=== PATIENT | female | born 1955 | race Caucasian/White ===

== ENCOUNTER → 2016-06-01 | Outpatient (CLI) | payer BC ==
[2016-06-01 14:00] LABS: ABSOLUTE BASOPHILS # (AUTO) 0.1 10^3/uL (0.0-0.2); ABSOLUTE EOSINOPHILS # (AUTO) 0.4 10^3/uL (0.0-0.6); ABSOLUTE LYMPHOCYTES (AUTO) 0.8 10^3/uL (0.5-4.7); ABSOLUTE MONOCYTES (AUTO) 0.5 10^3/uL (0.1-1.4); ABSOLUTE NEUT (AUTO) 2.3 10^3/uL (1.7-8.2); BASOPHILS % (AUTO) 1.3 % (0-2); EOSINOPHILS % (AUTO) 9.1 % (0-6); HEMATOCRIT 31.3 % (36.0-47.0); HEMOGLOBIN 10.5 g/dL (12.0-15.5); HGB HCT DIFFERENCE 0.2; LYMPHOCYTES % (AUTO) 20.9 % (13-45); MEAN CORPUSCULAR HEMOGLOBIN 31.8 pg (27.0-33.4); MEAN CORPUSCULAR HGB CONC 33.5 g/dL (32.0-36.0); MEAN CORPUSCULAR VOLUME 95 fl (80-97); MONOCYTES % (AUTO) 12.1 % (3-13); SEGMENTED NEUTROPHILS % (AUTO) 56.6 % (42-78); WHITE BLOOD COUNT 4.1 10^3/uL (4.0-10.5)
[2016-06-01 14:16] LABS: ALANINE AMINOTRANSFERASE 30 U/L (9-52); ALKALINE PHOSPHATASE 144 U/L (38-126); ANION GAP 11 (5-19); ASPARTATE AMINO TRANSFERASE 35 U/L (14-36); BILIRUBIN,TOTAL 0.5 mg/dL (0.2-1.3); BLOOD UREA NITROGEN 17 mg/dL (7-20); CALCIUM 9.5 mg/dL (8.4-10.2); CARBON DIOXIDE 22 mmol/L (22-30); CHLORIDE 111 mmol/L (98-107); CREATININE RESULT 1.24 mg/dL (0.52-1.25); GLUCOSE 90 mg/dL (75-110); MAGNESIUM 2.1 mg/dL (1.6-2.3); POTASSIUM 3.8 mmol/L (3.6-5.0); SODIUM 143.6 mmol/L (137-145)
[2016-06-01 15:17] LABS: FOLATE 6.78 ng/mL (>2.76)
== END ==
LOC: OD 12:29
PROVIDERS: ATTEND Family Medicine
DX: E87.6 Hypokalemia (principal); D50-D89 Diseases of the blood and blood-forming organs and certain disorders involving the immune mechanism; D64.9 Anemia, unspecified
CPT/HCPCS: 36415; 80053; 82607; 82746; 83540; 83550; 83735; 85025

== ENCOUNTER → 2016-06-24 | Outpatient (CLI) | payer BC | LOC: RAD 15:15 | PROVIDERS: ATTEND Specialist | DX: C85.90 Non-Hodgkin lymphoma, unspecified, unspecified site (principal) | CPT/HCPCS: 78815; A9552 ==

== ENCOUNTER → 2018-02-03 | Outpatient (CLI) | payer MEDICARE ==
[2018-02-03 10:10] LABS: ABSOLUTE LYMPHOCYTES (AUTO) 0.6 10^3/uL (0.5-4.7); ABSOLUTE MONOCYTES (AUTO) 0.3 10^3/uL (0.1-1.4); ABSOLUTE NEUT (AUTO) 2.7 10^3/uL (1.7-8.2); BASOPHILS % (AUTO) 0.5 % (0-2); EOSINOPHILS % (AUTO) 0.5 % (0-6); HEMATOCRIT 31.9 % (36.0-47.0); HEMOGLOBIN 10.7 g/dL (12.0-15.5); LYMPHOCYTES % (AUTO) 16.6 % (13-45); MEAN CORPUSCULAR HEMOGLOBIN 30.1 pg (27.0-33.4); MEAN CORPUSCULAR HGB CONC 33.5 g/dL (32.0-36.0); MEAN CORPUSCULAR VOLUME 90 fl (80-97); MONOCYTES % (AUTO) 8.5 % (3-13); PLATELET COUNT 163 10^3/uL (150-450); RED BLOOD COUNT 3.55 10^6/uL (3.72-5.28); RED CELL DISTRIBUTION WIDTH 15.9 % (11.5-14.0); SEGMENTED NEUTROPHILS % (AUTO) 73.9 % (42-78); TOTAL CELLS COUNTED % (AUTO) 100 %; WHITE BLOOD COUNT 3.6 10^3/uL (4.0-10.5)
[2018-02-03 10:11] LABS: AMORPHOUS SEDIMENT,URINE TRACE /HPF; APPEARANCE,URINE SLIGHTLY-CLOUDY; BILIRUBIN,URINE NEGATIVE (NEGATIVE); CALCIUM OXALATE CRYSTALS,URINE FEW /HPF; COLOR,URINE YELLOW; GLUCOSE, URINE NEGATIVE (NEGATIVE); KETONES,URINE NEGATIVE (NEGATIVE); LEUKOCYTE ESTERASE,URINE SMALL (NEGATIVE); NITRITE,URINE POSITIVE (NEGATIVE); PROTEIN,URINE NEGATIVE (NEGATIVE); URINE SPECIFIC GRAVITY 1.011; UROBILINOGEN,URINE NEGATIVE mg/dL (<2.0)
[2018-02-03 10:19] LABS: ALANINE AMINOTRANSFERASE 22 U/L (9-52); ALBUMIN 3.7 g/dL (3.5-5.0); ALKALINE PHOSPHATASE 157 U/L (38-126); ANION GAP 13 (5-19); ASPARTATE AMINO TRANSFERASE 37 U/L (14-36); BILIRUBIN,DIRECT 0.2 mg/dL (0.0-0.4); BILIRUBIN,TOTAL 0.4 mg/dL (0.2-1.3); BLOOD UREA NITROGEN 16 mg/dL (7-20); CARBON DIOXIDE 23 mmol/L (22-30); CHLORIDE 113 mmol/L (98-107); CHOLESTEROL 186.42 mg/dL (0-200); GLUCOSE 108 mg/dL (75-110); IRON(TIBC) 76.5 ug/dL (37-170); SODIUM 148.5 mmol/L (137-145); TOTAL PROTEIN 8.4 g/dL (6.3-8.2); TRIGLYCERIDES 117 mg/dL (<150)
[2018-02-03 10:30] LABS: DIRECT LDL 122 mg/dL (<100)
[2018-02-03 10:49] LABS: POTASSIUM 2.8 mmol/L (3.6-5.0)
--- NOTE | 2018-02-03 20:38 | RADIOLOGY REPORT (SQ) ---
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 NUMBER OF VIEWS: Five views including obliques. TECHNIQUE: AP, lateral, oblique, and sacral radiographic images acquired of the lumbar spine. LIMITATIONS: None. FINDINGS: MINERALIZATION: Normal. SEGMENTATION: Normal. No transitional anatomy. ALIGNMENT: Normal. VERTEBRAE: Maintained height. No fracture or worrisome bone lesion. DISCS: Multilevel disc space narrowing with osteophytes. POSTERIOR ELEMENTS: Pedicles and facets are intact. No pars defect or posterior arch defects. Facet arthropathy is present. HARDWARE: None in the spine. PARASPINAL SOFT TISSUES: Normal. PELVIS: Intact as visualized. No fractures or worrisome bone lesions. SI joints intact. OTHER: No other significant finding. IMPRESSION: SPONDYLOSIS WITHOUT BONE LESION OR FRACTURE. TECHNICAL DOCUMENTATION: JOB ID: [id number] [address]- All Rights Reserved Reading location - IP/workstation name: [email or web address]
== END ==
LOC: OD 09:00
PROVIDERS: ATTEND Family Medicine
DX: C85.19 Unspecified B-cell lymphoma, extranodal and solid organ sites (principal); N39.498 Other specified urinary incontinence; F32.9 Major depressive disorder, single episode, unspecified; D64.9 Anemia, unspecified; M54.32 Sciatica, left side; Z13.6 Encounter for screening for cardiovascular disorders; M47.896 Other spondylosis, lumbar region
CPT/HCPCS: 36415; 72110; 80053; 80061; 81001; 83540; 83550; 84443; 85025; 87086; 87088; 87186

== ENCOUNTER → 2018-02-07 | Outpatient (CLI) | payer MEDICARE ==
--- NOTE | 2018-02-07 15:15 | RADIOLOGY REPORT (SQ) ---
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 TECHNIQUE: Sagittal and Axial imaging includes T1, T2, STIR and gradient echo sequences. Coronal T2/ HASTE imaging. LIMITATIONS: None. FINDINGS: VISUALIZED UPPER ABDOMEN: Limited evaluation. No acute or suspicious findings suggested. SEGMENTATION: No transitional anatomy. The lowest well-developed disc space is labeled L5-S1. ALIGNMENT: Anatomic. VERTEBRAE: Intact. BONE MARROW: Markedly heterogenous marrow signal throughout the bony structures. DISC SIGNAL: Decreased height and signal. POSTERIOR ELEMENTS: Generally intact. No pars defect evident. HARDWARE: None in the spine. CORD AND CONUS: Normal in size and signal intensity. Conus at the appropriate level. SOFT TISSUES: No aortic aneurysm seen. No bulky retroperitoneal adenopathy or mass. No paraspinal mas s or fluid. L1-L2: No significant spinal stenosis or exit foraminal stenosis. L2-L3: No significant disc bulge. Mild facet arthropathy. No significant spinal stenosis or exit fo raminal stenosis. L3-L4: Mild diffuse posterior disc bulge. Mild facet arthropathy. Mild spinal stenosis. No signifi cant exit foraminal stenosis. L4-L5: Mild diffuse posterior disc bulge. Mild to moderate facet arthropathy. No significant spinal stenosis. Mild lateral recess stenosis and bilateral exit foraminal stenosis, worse on the left. L5-S1: No significant disc bulge. Mild to moderate facet arthropathy. No significant spinal stenosi s. Mild exit foraminal stenosis, worse on the left. LOWER THORACIC: Incompletely imaged. No stenosis seen. SACRUM: Visualized upper sacrum intact. OTHER: No other significant findings. IMPRESSION: 1. MULTILEVEL CHRONIC DEGENERATIVE CHANGES DESCRIBED. NO ACUTE FINDINGS. 2. EXTENSIVE HETEROGENOUS MARROW SIGNAL THROUGHOUT THE BONY STRUCTURES. SIMILAR APPEARANCE ON PRIOR STUDIES IN 2013. THIS COULD BE DUE TO REPLACEMENT OF YELLOW MARROW BY RED MARROW. OTHER POSSIBILITI ES INCLUDE DIFFUSE INVOLVEMENT WITH LYMPHOMA, METASTASES, OR OTHER HEMATOLOGIC CONDITION. AGAIN, FIN DINGS SHOW NO SIGNIFICANT CHANGE COMPARED TO 2013. TECHNICAL DOCUMENTATION: JOB ID: [id number]- All Rights Reserved Reading location - IP/workstation name: [email or web address]
--- NOTE | 2018-02-07 16:04 | WOMENS IMAGING REPORT ---
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 TECHNIQUE: Standard craniocaudal and mediolateral oblique views of each breast recorded using digita l acquisition and breast tomosynthesis. LIMITATIONS: None. FINDINGS: RIGHT BREAST MASSES: No suspicious masses. CALCIFICATIONS: Calcifications in the upper-outer quadrant, located approximately 3.5 cm from the nip ple. ARCHITECTURAL DISTORTION: None. DEVELOPING DENSITY: None. ASYMMETRY: None noted. OTHER: No other significant findings. LEFT BREAST MASSES: No suspicious masses. CALCIFICATIONS: No new or suspicious calcifications. ARCHITECTURAL DISTORTION: None. DEVELOPING DENSITY: None. ASYMMETRY: None noted. OTHER: No other significant findings. Read with the assistance of CAD. .[facility] - R2 [employer] Version 1.3 .[facility] Imaging - R2 Cenova Version 1.3 .[facility] - R2 Cenova Version 2.4 .[facility] R2 Cenova Version 2.4 .[facility] AT THE [facility] - R2 [employer] Functional Testing Version 9.2 IMPRESSION: Calcifications in the upper-outer right breast. Stable mammographic appearance of the l eft breast. BREAST DENSITY: c. The breasts are heterogeneously dense, which may obscure small masses. BIRAD: 0 Incomplete: Needs Additional Imaging Evaluation and/or prior Mammograms for Comparison. RECOMMENDATION: RECOMMENDED FOLLOW-UP: Recommend additional evaluation with magnification views of t he right breast. Recommend routine screening mammography of the left breast. The patient will be contacted for additional imaging. COMMENT: The patient has been notified of the results by letter per SA requirements. Additional no tification policies are in place for contacting patient with suspicious or incomplete findings. Quality ID #225: The [employer] recommends an annual screening mammogram for women aged 40 years or over. This facility utilizes a reminder system to ensure that all patients receive reminder letters, and/or direct phone calls for appointments. This includes reminders for routine scr eening mammograms, diagnostic mammograms, or other Breast Imaging Interventions when appropriate. Th is patient will be placed in the appropriate reminder system. The [employer] (ACR) has developed recommendations for screening MRI of the breast s in certain patient populations, to be used in conjunction with mammography. Breast MRI surveillanc e may be appropriate for women with more than 20% lifetime risk of developing breast cancer as deter mined by genetic testing, significant family history of the disease, or history of mantle radiation f or Hodgkins Disease. ACR Practice Guidelines 2008. DBT Technology DBT is a type of tomographic mammography. With conventional mammography, overlapping breast tissue ma y make lesions difficult to detect, even with good compression. DBT uses an x-ray tube that rotates a round the breast, taking images at different angles. These images are then combined to create thin sl ices of the breast that the radiologist can view as a 3D reconstruction. The [employer] unit can perform full-field digital mammograms (2D imaging); or DBT (3D imaging); or both, in a combination mode that quickly performs both the mammogram and the tomosynthesis scan while the breast is still compressed. PQRS 6045F: Fluoroscopic imaging is not utilized for breast tomosynthesis. TECHNICAL DOCUMENTATION: FINDING NUMBER: (1) ASSESSMENT: (1) JOB ID: [id number] [employer]- All Rights Reserved Reading location - IP/workstation name: [email or web address] BEDS AT THE [facility]
== END ==
LOC: WI 13:45
PROVIDERS: ATTEND Family Medicine
DX: Z12.31 Encounter for screening mammogram for malignant neoplasm of breast (principal); R92.0 Mammographic microcalcification found on diagnostic imaging of breast; M54.32 Sciatica, left side; M47.896 Other spondylosis, lumbar region
CPT/HCPCS: 72148; 77063; 77067

== ENCOUNTER → 2018-02-13 | Outpatient (CLI) | payer MEDICARE ==
--- NOTE | 2018-02-13 14:28 | WOMENS IMAGING REPORT ---
EXAM DESCRIPTION: RIGHT DIAGNOSTIC MAMMO W/CAD COMPLETED DATE/TIME: 02/13/2018 12:58 pm REASON FOR STUDY: MICROCALCIFICATIONS R92.0 MAMMOGRAPHIC MICROCALCIFICATION FOUND ON DX IMAGING OF COMPARISON: 2008, 02/07/2018. TECHNIQUE: True lateral and magnification views. LIMITATIONS: None. FINDINGS: BREAST: right MASSES: No suspicious masses. CALCIFICATIONS: Scattered calcifications which are either stable or are not suspicious. ARCHITECTURAL DISTORTION: None. DEVELOPING DENSITY: None. ASYMMETRY: None noted. OTHER: No other significant findings. IMPRESSION: Benign findings. BREAST DENSITY: c. The breasts are heterogeneously dense, which may obscure small masses. BIRAD: 2 Benign findings. RECOMMENDATION: RECOMMENDED FOLLOW UP: Birads 1 or 2: The patient should resume routine screening . SPECIFIC INTERVENTION/IMAGING/CONSULTATION RECOMMENDED:No additional intervention/ imaging/consultati on needed at this time. COMMUNICATION:The imaging findings were not discussed with the patient. Her referring provider has be en notified of the findings. COMMENT: The patient has been notified of the results by letter per SA requirements. Additional no tification policies are in place for contacting patient with suspicious or incomplete findings. Quality ID #225: The [employer] recommends an annual screening mammogram for women aged 40 years or over. This facility utilizes a reminder system to ensure that all patients receive reminder letters, and/or direct phone calls for appointments. This includes reminders for routine scr eening mammograms, diagnostic mammograms, or other Breast Imaging Interventions when appropriate. Th is patient will be placed in the appropriate reminder system. The [employer] (ACR) has developed recommendations for screening MRI of the breast s in certain patient populations, to be used in conjunction with mammography. Breast MRI surveillanc e may be appropriate for women with more than 20% lifetime risk of developing breast cancer as deter mined by genetic testing, significant family history of the disease, or history of mantle radiation f or Hodgkins Disease. ACR Practice Guidelines 2008. TECHNICAL DOCUMENTATION: FINDING NUMBER: (1) ASSESSMENT: (1) JOB ID: [id number] [employer]- All Rights Reserved Reading location - IP/workstation name: [email or web address] BY [facility]
== END ==
LOC: WI 12:35
PROVIDERS: ATTEND Family Medicine
DX: R92.0 Mammographic microcalcification found on diagnostic imaging of breast (principal)

== ENCOUNTER 2018-05-02 16:18 | Emergency (ER) | payer MEDICARE ==
--- NOTE | 2018-05-02 18:00 | ER Document Report ---
ED Medical Screen (RME) - General Chief Complaint: Leg Pain Stated Complaint: ANKLE PAIN/SWELLING Time Seen by Provider: 05/02/18 17:55 Primary Care Provider: SRAVAN MCCABE MD [Primary Care Provider] - Follow up as needed Notes: 62-year-old female patient with a nonhealing ulceration to the left anterior leg for over a month which was nontraumatic by history. Painful swelling to the left lower extremity. Sent here by her doctor for venous Doppler. Past history of osteomyelitis to the left tib-fib region, and distant past history of left leg DVT. No antiplatelet therapy and no anticoagulation at this time. I have greeted and performed a rapid initial assessment of this patient. A comprehensive ED assessment and evaluation of the patient, analysis of test results and completion of the medical decision making process will be conducted by additional ED providers. TRAVEL OUTSIDE OF THE [place] IN LAST 30 DAYS: No - Related Data Allergies/Adverse Reactions: cephalexin monohydrate [From Keflex] Allergy (Mild, Verified 05/02/18 16:21) ciprofloxacin HCl [From Cipro] Allergy (Mild, Verified 05/02/18 16:21) hydrocodone bitartrate [From Vicodin] Allergy (Mild, Verified 05/02/18 16:21) Past Medical History - Past Medical History Cardiac Medical History: Reports: Hx DVT, Hx Pulmonary Embolism Pulmonary Medical History: Reports: Hx Pneumonia Denies: Hx Tuberculosis Renal/ Medical History: Reports: Hx Renal Insufficiency Psychiatric Medical History: Reports: Hx Depression Past Surgical History: Reports: Hx Section, Hx Cholecystectomy, Hx Herniorrhaphy, Hx Hysterectomy, Hx Whipple. Denies: Hx Pacemaker - Immunizations Hx Diphtheria, Pertussis, Tetanus Vaccination: Yes Physical Exam - Vital signs Vitals: Temp Pulse Resp BP Pulse Ox 98.1 F 65 18 126/72 H 100 05/02/18 16:30 05/02/18 16:30 05/02/18 16:30 05/02/18 16:30 05/02/18 16:30 Course - Vital Signs Vital signs: Temp Pulse Resp BP Pulse Ox 98.1 F 65 18 126/72 H 100 05/02/18 16:30 05/02/18 16:30 05/02/18 16:30 05/02/18 16:30 05/02/18 16:30 Doctor's Discharge - Discharge Referrals: SRAVAN MCCABE MD [Primary Care Provider] - Follow up as needed
[2018-05-02 18:42] LABS: ABSOLUTE EOSINOPHILS # (AUTO) 0.2 10^3/uL (0.0-0.6); ABSOLUTE LYMPHOCYTES (AUTO) 0.8 10^3/uL (0.5-4.7); ABSOLUTE MONOCYTES (AUTO) 0.5 10^3/uL (0.1-1.4); EOSINOPHILS % (AUTO) 6.7 % (0-6); HEMOGLOBIN 10.7 g/dL (12.0-15.5); LYMPHOCYTES % (AUTO) 21.5 % (13-45); MEAN CORPUSCULAR HEMOGLOBIN 30.3 pg (27.0-33.4); MEAN CORPUSCULAR HGB CONC 33.3 g/dL (32.0-36.0); MEAN CORPUSCULAR VOLUME 91 fl (80-97); MONOCYTES % (AUTO) 13.2 % (3-13); PLATELET COUNT 198 10^3/uL (150-450); RED BLOOD COUNT 3.52 10^6/uL (3.72-5.28); RED CELL DISTRIBUTION WIDTH 15.1 % (11.5-14.0); SEGMENTED NEUTROPHILS % (AUTO) 57.6 % (42-78); TOTAL CELLS COUNTED % (AUTO) 100 %; WHITE BLOOD COUNT 3.5 10^3/uL (4.0-10.5)
[2018-05-02 18:51] LABS: INTERNATIONAL RATION (INR) 0.89; PROTHROMBIN TIME 12.5 SEC (11.4-15.4)
[2018-05-02 18:52] LABS: ALANINE AMINOTRANSFERASE 10 U/L (9-52); ALBUMIN 4.4 g/dL (3.5-5.0); ALKALINE PHOSPHATASE 243 U/L (38-126); ANION GAP 9 (5-19); ASPARTATE AMINO TRANSFERASE 20 U/L (14-36); BILIRUBIN,DIRECT 0.3 mg/dL (0.0-0.4); BILIRUBIN,TOTAL 0.4 mg/dL (0.2-1.3); BLOOD UREA NITROGEN 24 mg/dL (7-20); CALCIUM 9.6 mg/dL (8.4-10.2); CARBON DIOXIDE 25 mmol/L (22-30); CHLORIDE 107 mmol/L (98-107); GLUCOSE 98 mg/dL (75-110); POTASSIUM 4.5 mmol/L (3.6-5.0); SODIUM 141.3 mmol/L (137-145); TOTAL PROTEIN 9.1 g/dL (6.3-8.2)
--- NOTE | 2018-05-02 19:20 | ER Document Report ---
ED Extremity Problem, Lower - General Chief Complaint: Leg Pain Stated Complaint: ANKLE PAIN/SWELLING Time Seen by Provider: 05/02/18 17:55 Primary Care Provider: SRAVAN MCCABE MD [Primary Care Provider] - Follow up as needed Notes: Patient is a 62 year old female that comes to the Emergency Department for chief complaint of a non-healing ulceration to the left anterior lower leg. Location has been present for 1 month. Patient has a history of osteomyelitis in the same side, remote history of DVT, not on any blood thinners. Denies trauma. Denies fever or pain to the area. She does report some mild swelling to the ankle area. She states she was referred here by a primary care physician for a venous Doppler ultrasound to rule out DVT. She states she does get intermittent swelling in the same leg and does not in the other leg. TRAVEL OUTSIDE OF THE [place] IN LAST 30 DAYS: No - Related Data Allergies/Adverse Reactions: cephalexin monohydrate [From Keflex] Allergy (Mild, Verified 05/02/18 16:21) ciprofloxacin HCl [From Cipro] Allergy (Mild, Verified 05/02/18 16:21) hydrocodone bitartrate [From Vicodin] Allergy (Mild, Verified 05/02/18 16:21) Past Medical History - General Information source: Patient - Social History Smoking Status: Former Smoker Chew tobacco use (# tins/day): No Frequency of alcohol use: None Drug Abuse: None Lives with: Alone Family History: Reviewed & Not Pertinent Patient has suicidal ideation: No Patient has homicidal ideation: No - Past Medical History Cardiac Medical History: Reports: Hx DVT, Hx Pulmonary Embolism Pulmonary Medical History: Reports: Hx Pneumonia Denies: Hx Tuberculosis Renal/ Medical History: Reports: Hx Renal Insufficiency. Denies: Hx Peritoneal Dialysis Psychiatric Medical History: Reports: Hx Depression Past Surgical History: Reports: Hx Abdominal Surgery - hernia repair, Hx Section, Hx Cholecystectomy, Hx Herniorrhaphy, Hx Hysterectomy, Hx Orthopedic Surgery - left ankle, Hx Pancreatic Surgery - whipple, Hx Whipple. Denies: Hx Pacemaker - Immunizations Hx Diphtheria, Pertussis, Tetanus Vaccination: Yes Hx Pneumococcal Vaccination: 02/04/12 Review of Systems - Review of Systems Constitutional: No symptoms reported EENT: No symptoms reported Cardiovascular: No symptoms reported Respiratory: No symptoms reported Gastrointestinal: No symptoms reported Genitourinary: No symptoms reported Female Genitourinary: No symptoms reported Musculoskeletal: See HPI Skin: See HPI Hematologic/Lymphatic: See HPI Neurological/Psychological: No symptoms reported Physical Exam - Vital signs Vitals: Temp Pulse Resp BP Pulse Ox 98.1 F 65 18 126/72 H 100 05/02/18 16:30 05/02/18 16:30 05/02/18 16:30 05/02/18 16:30 05/02/18 16:30 - Notes Notes: GENERAL: Alert, interacts well. No acute distress. HEAD: Normocephalic, atraumatic. EYES: Pupils equal, round, and reactive to light. Extraocular movements intact. ENT: Oral mucosa moist, tongue midline. Oropharynx unremarkable. Airway patent. Nares patent, no nasal septal hematoma, TM's intact. NECK: Full range of motion. Supple. Trachea midline. LUNGS: Clear to auscultation bilaterally, no wheezes, rales, or rhonchi. No respiratory distress. HEART: Regular rate and rhythm. No murmur ABDOMEN: Soft, non-tender. Non-distended. Bowel sounds present in all 4 quadrants. GENITOURINARY: Deferred EXTREMITIES: Distal anterior medial tibia with a small area of skin breakdown, some darkness/scabbing to the skin, no noted erythema, tenderness, purulence, or spreading erythema. Small amount of soft tissue swelling to the distal leg and over the ankle. Normal distal pulse and sensation. Normal temperature of the foot. Normal lower extremity exam otherwise. BACK: no cervical, thoracic, lumbar midline tenderness. No saddle anesthesia, normal distal neurovascular exam. NEUROLOGICAL: Alert and oriented x3. Normal speech. [cranial nerves II through XII grossly intact]. PSYCH: Normal affect, normal mood. SKIN: Warm, dry, normal turgor. No rashes or lesions noted. Course - Re-evaluation Re-evalutation: Initial report of venous Doppler ultrasound showing no DVT. There is scarring of the veins from previous clots. I suspect this is why patient has poor return, intermittent swelling, and the appearance of her skin shows that she has some rubbing of the skin, breakdown, and mild ulceration as a result. There is no evidence of secondary infection, there is no tenderness to the area. There is no significant swelling. Laboratory workup performed in triage nonspecific. Vital signs unremarkable. Patient very well-appearing with no current symptoms. Because she does have some skin ulceration and this has been nonhealing for 1 month, patient will be referred to the wound clinic, she states she will follow- up with them. Discussed primary care follow-up and return precautions as well. Patient states understanding and agreement. Stable at time of discharge. - Vital Signs Vital signs: Temp Pulse Resp BP Pulse Ox 98.2 F 67 18 131/67 H 100 05/02/18 20:43 05/02/18 20:43 05/02/18 20:43 05/02/18 20:43 05/02/18 20:43 - Laboratory Result Diagrams: 05/02/18 18:04 05/02/18 18:04 Laboratory results interpreted by me: 05/02/18 05/02/18 18:04 18:04 WBC 3.5 L RBC 3.52 L Hgb 10.7 L Hct 32.0 L RDW 15.1 H Monocytes % 13.2 H Eosinophils % 6.7 H BUN 24 H Est GFR (Non-Af Amer) 54 L Alkaline Phosphatase 243 H Total Protein 9.1 H Discharge - Discharge Clinical Impression: Non-healing skin lesion, Swelling of left lower extremity Condition: Stable Disposition: HOME, SELF-CARE Additional Instructions: Your Doppler ultrasound does not show a blood clot seen on initial results. You do have scarring in the veins from previous clots, this is probably the reason that you get lower extremity swelling on the left side from poor venous blood flow return. Recommend elevation, dressing over the slowly healing with skin lesion, compression stockings. Follow-up with the wound care clinic for additional management because the wound has not healed for 1 month. Call the listed referral. Return if you develop any concerning worsening symptoms including severe swelling, developing or spreading redness at the site, fever, pain, or any other concerning or worsening symptoms. Referrals: SRAVAN MCCABE MD [Primary Care Provider] - Follow up as needed
[2018-05-02 20:44] VITALS: BP 131/67
--- NOTE | 2018-05-03 08:31 | RADIOLOGY REPORT (SQ) ---
EXAM DESCRIPTION: VENOUS UNILATERAL LOWER COMPLETED DATE/TIME: 05/02/2018 8:27 pm REASON FOR STUDY: Left leg pain and swelling, previous DVT COMPARISON: 10/29/2014 TECHNIQUE: Dynamic and static miller scale and color images acquired of the left leg venous system. Se lected spectral images acquired with additional compression and augmentation maneuvers. The contralat eral common femoral vein and saphenofemoral junction were also imaged. Images stored on PACS. LIMITATIONS: None. FINDINGS: LEFT COMMON FEMORAL: Normal phasicity, compression and augmentation. No visualized echogenic material on g ray scale. No defects on color images. FEMORAL: Normal compression and augmentation. No visualized echogenic material on miller scale. No defe cts on color images. POPLITEAL: Normal compression, augmentation. No visualized echogenic material on miller scale. No defec ts on color images. POSTERIOR TIBIAL AND PERONEAL VEINS: Normal compression, augmentation. No visualized echogenic materi al on miller scale. No defects on color images. GSV and SSV: Normal compression, augmentation. No visualized echogenic material on imller scale. No def ects on color images. ANY DEEP VENOUS INSUFFICIENCY: There is reflux in the distal superficial femoral vein during Valsalva . ANY EVIDENCE OF POPLITEAL CYST: No. OTHER: No other significant finding. RIGHT COMMON FEMORAL VEIN AND SAPHENOFEMORAL JUNCTION: Normal phasicity, compression and augmentation. No visualized echogenic material on miller scale. No de fects on color images. IMPRESSION: NO EVIDENCE OF DVT OR SVT IN THE LEFT LEG. TECHNICAL DOCUMENTATION: JOB ID: [id number] [employer]- All Rights Reserved Reading location - IP/workstation name: [email or web address]
== END 2018-05-02 20:31 | disposition home or self-care (01) ==
LOC: ER 16:18
DX: L97.829 Non-pressure chronic ulcer of other part of left lower leg with unspecified severity (principal); M79.89 Other specified soft tissue disorders; Z86.718 Personal history of other venous thrombosis and embolism; Z88.3 Allergy status to other anti-infective agents; Z88.6 Allergy status to analgesic agent; Z87.891 Personal history of nicotine dependence; Z90.49 Acquired absence of other specified parts of digestive tract; Z90.710 Acquired absence of both cervix and uterus
CPT/HCPCS: 36415; 80053; 85025; 85610; 85730; 93971; 99284

== ENCOUNTER → 2018-05-08 | Outpatient (CLI) | payer MEDICARE ==
--- NOTE | 2018-05-08 16:26 | RADIOLOGY REPORT (SQ) ---
EXAM DESCRIPTION: FOOT LEFT COMPLETE COMPLETED DATE/TIME: 05/08/2018 4:03 pm REASON FOR STUDY: NON PRESSURE ULCER OF LEFT ANKLE AND LEFT CALF, FAT LAYER EXPOSED L97.222 NON-PRE SSURE CHRONIC ULCER OF LEFT CALF W FAT LAYER L97.322 NON-PRESSURE CHRONIC ULCER OF LEFT ANKLE W FAT LAYER COMPARISON: 12/03/2014. NUMBER OF VIEWS: Three views. TECHNIQUE: AP, lateral and oblique radiographic images acquired of the left foot. LIMITATIONS: None. FINDINGS: MINERALIZATION: Normal. BONES: No acute fracture or dislocation. No suspicious osseous lesions. Mild degenerative changes w ith osteophytosis at the mid foot superiorly. Sclerosis with the posterosuperior calcaneus, increase d from prior. No evidence of osseous erosion. JOINTS: No visualized effusion. SOFT TISSUES: Soft tissue swelling about the foot. No radiopaque foreign body. OTHER: No other significant finding. IMPRESSION: No evidence of fracture or dislocation. Sclerosis within the calcaneus, increased in conspicuity compared to prior. Findings may be related to bony infarct although osteomyelitis is another consideration. MRI would be more sensitive for leif luation of osteomyelitis. No radiopaque foreign body. TECHNICAL DOCUMENTATION: JOB ID: [id number] [employer]- All Rights Reserved Reading location - IP/workstation name: [email or web address]
--- NOTE | 2018-05-08 16:34 | RADIOLOGY REPORT (SQ) ---
EXAM DESCRIPTION: TIBIA FIBULA LEFT COMPLETED DATE/TIME: 05/08/2018 4:03 pm REASON FOR STUDY: NON-PRESSURE CHRONIC ULCER OF LEFT ANKLE W FAT LAYER EXPOSED L97.222 NON-PRESSURE CHRONIC ULCER OF LEFT CALF W FAT LAYER L97.322 NON-PRESSURE CHRONIC ULCER OF LEFT ANKLE W FAT LAYE R COMPARISON: 06/08/2012 NUMBER OF VIEWS: Two views. TECHNIQUE: Two radiographic images acquired of the left tibia and fibula to include the knee and ank le in at least one projection. LIMITATIONS: None. FINDINGS: MINERALIZATION: Normal. BONES: No acute fracture or dislocation. Sclerosis within the left calcaneus, increased in conspicui ty compared to prior exam. No leak discrete lytic lesions. Unchanged possible periosteal reaction a bout the distal fibula. SOFT TISSUES: Small amount of subcutaneous gas along the anterior distal left lower extremity. No ra diopaque foreign body. OTHER: No other significant finding. IMPRESSION: Subcutaneous gas along the anterior distal left lower extremity. No radiopaque foreign body. Sclerosis within the left calcaneus possibly secondary to osseous infarct. Osteomyelitis is another consideration. MRI would be more sensitive. TECHNICAL DOCUMENTATION: JOB ID: [id number] [employer]- All Rights Reserved Reading location - IP/workstation name: [email or web address]
== END ==
LOC: OD 15:17
PROVIDERS: ATTEND Nurse Practitioner
DX: L97.222 Non-pressure chronic ulcer of left calf with fat layer exposed (principal); L97.322 Non-pressure chronic ulcer of left ankle with fat layer exposed
CPT/HCPCS: 36415; 85652; 86140

== ENCOUNTER → 2018-05-13 | Outpatient (CLI) | payer MEDICARE ==
--- NOTE | 2018-05-13 13:56 | RADIOLOGY REPORT (SQ) ---
EXAM DESCRIPTION: MRI LT LOWER EXTREMITY COMBO COMPLETED DATE/TIME: 05/13/2018 1:31 pm REASON FOR STUDY: NON-PRESSURE CHRONIC ULCER OF LEFT CALF L97.222 L97.222 NON-PRESSURE CHRONIC ULCE R OF LEFT CALF W FAT LAYER COMPARISON: Plain radiographs. Prior study 2014 TECHNIQUE: Multiplanar imaging of the left tib fib to include T1-weighted, postcontrast T1-weighted, and T2-weighted images. CONTRAST TYPE AND DOSE: 10 mL Dotarem. RENAL FUNCTION: GFR 54 LIMITATIONS: None. FINDINGS: BONE MARROW: There are no findings to suggest osteomyelitis. There is however a transvers e stress fracture of the distal tibia proximal to the tibiotalar joint. Adjacent marrow edema. Stephon tional possible stress fractures in the calcaneus. incompletely imaged. SOFT TISSUES: No soft tissue mass or enhancement in the area of clinical concern. No abscess. OTHER: No other significant finding. IMPRESSION: Transverse stress fracture of the distal tibia proximal to the tibiotalar joint. Adjace nt marrow edema. No osteomyelitis. Additional possible stress fractures in the calcaneus. No soft tissue mass or abscess. TECHNICAL DOCUMENTATION: JOB ID: [id number] [employer]- All Rights Reserved Reading location - IP/workstation name: [email or web address]
== END ==
LOC: RAD 12:25
PROVIDERS: ATTEND Nurse Practitioner
DX: L97.222 Non-pressure chronic ulcer of left calf with fat layer exposed (principal)
CPT/HCPCS: 73720; A9576

== ENCOUNTER → 2018-05-14 | Outpatient (CLI) | payer MEDICARE ==
--- NOTE | 2018-05-15 09:48 | XCELERA REPORT ---
[address] [address] Lower Extremity Venous Evaluation Procedure: A bilateral duplex scan of the lower extremity veins was performed. The evaluation included responses to compression and other maneuvers with patient in the supine and standing positions to assess venous insufficiency. Right Sided Venous Evaluation Deep venous system evaluation shows partial obstruction, echogenic content in the Popliteal vein. also in the Greater Saphenous vein, near the ankle. No significant reflux identified. Saphena Femoral junction: no reflux. Femoral vein reflux: no reflux. Popliteal vein reflux: no reflux. Echogenic content. Greater Saphenous vein, Proximal thigh: reflux: no reflux. Greater Saphenous vein, Distal thigh: reflux: no reflux. Greater Saphenous vein, Distal below knee: reflux: no reflux. Echogenic content in the vein. No significant Fine Arts Model reflux identified. Left Sided Venous Evaluation Deep venous system evaluation shows mostly patent veins with echogenic intra luminal thrombus, no significant reflux identified. In CFV,FV,DFV,POP. Also in Greater Saphenous. Saphena Femoral junction: no reflux. Femoral vein reflux: no reflux. Echogenic content with color flow around. Likewise in deep veins as noted above. Greater Saphenous vein, Proximal thigh: reflux: no reflux. Greater Saphenous vein, Distal thigh: reflux: no reflux. Greater Saphenous vein, Proximal below knee: reflux: no reflux. No significant Perforators identified. Critical Findings Discussed with JORDAN Chandler. Interpretation Summary Positive for Chronic DVT, extensive on left, in Popliteal on the right. Also old, chronic superficial phlebitis bilaterally. Name: CORA KWON Age: 62 yrs Gender: Female : 1955 Patient Status: Outpatient Patient Location: Study Date: 05/14/2018 02:40 PM Reason For Study: ULCER Ordering Physician: ANN CHANDLER Performed By: Vitaly Gama : ANN CHANDLER > Nehemias Vazquez
--- NOTE | 2018-05-15 09:50 | XCELERA REPORT ---
[address] [address] Lower Extremity Arterial Evaluation Name: CORA KWON Age: 62 yrs Gender: Female : 1955 Patient Status: Outpatient Patient Location: Study Date: 05/14/2018 02:20 PM Procedure: A color flow and duplex scan of the lower extremity arteries was performed bilaterally with velocity and waveform anaylsis. Ankle brachial indicies performed. Reason For Study: ULCER Ordering Physician: ANN CHANDLER Performed By: Vitaly Gama Measurements and Calculations Right Left WARM IN WORKER PSV 114.5 165.0 cm/sec Prox PFA PSV -79.1 -118.0cm/sec Prox SFA PSV 104.3 114.5 cm/sec Mid SFA PSV -98.2 -117.3cm/sec Dist SFA PSV -83.8 -77.1 cm/sec Prox Pop A PSV 96.5 140.6 cm/sec Dist JASMIN PSV 78.6 126.3 cm/sec Dist TOBACCO BALER PSV 137.6 97.6 cm/sec Jerson Pedis PSV 46.9 -91.7 cm/sec Right Side Arterial Evaluation Normal velocity and triphasic waveforms noted from the Common Femoral artery to the infrageniculate vessels . Ankle Brachial index 1.11. Left Side Arterial Evaluation Normal velocity and triphasic waveforms noted from the Common Femoral artery to the infrageniculate vessels . Ankle Brachial index 1.20. Interpretation Summary No hemodynamically significant lesions in the bilateral lower extremities, on duplex imaging, at rest. : ANN CHANDLER > Nehemias Vazquez
== END ==
LOC: SP 13:58
PROVIDERS: ATTEND Nurse Practitioner
DX: L97.322 Non-pressure chronic ulcer of left ankle with fat layer exposed (principal); L97.222 Non-pressure chronic ulcer of left calf with fat layer exposed
CPT/HCPCS: 93922; 93925; 93970

== ENCOUNTER → 2018-06-26 | Outpatient (CLI) | payer MEDICARE ==
[2018-06-26 14:48] LABS: ABSOLUTE EOSINOPHILS # (AUTO) 0.2 10^3/uL (0.0-0.6); ABSOLUTE LYMPHOCYTES (AUTO) 0.6 10^3/uL (0.5-4.7); ABSOLUTE MONOCYTES (AUTO) 0.4 10^3/uL (0.1-1.4); ABSOLUTE NEUT (AUTO) 1.8 10^3/uL (1.7-8.2); BASOPHILS % (AUTO) 0.6 % (0-2); HEMATOCRIT 28.8 % (36.0-47.0); HEMOGLOBIN 9.8 g/dL (12.0-15.5); LYMPHOCYTES % (AUTO) 20.3 % (13-45); MEAN CORPUSCULAR HEMOGLOBIN 30.3 pg (27.0-33.4); MEAN CORPUSCULAR VOLUME 89 fl (80-97); MONOCYTES % (AUTO) 14.2 % (3-13); PLATELET COUNT 163 10^3/uL (150-450); RED BLOOD COUNT 3.23 10^6/uL (3.72-5.28); RED CELL DISTRIBUTION WIDTH 14.9 % (11.5-14.0); SEGMENTED NEUTROPHILS % (AUTO) 58.9 % (42-78); TOTAL CELLS COUNTED % (AUTO) 100 %
[2018-06-26 15:03] LABS: APPEARANCE,URINE SLIGHTLY-CLOUDY; BILIRUBIN,URINE NEGATIVE (NEGATIVE); CALCIUM OXALATE CRYSTALS,URINE MANY /HPF; COLOR,URINE YELLOW; GLUCOSE, URINE NEGATIVE (NEGATIVE); KETONES,URINE TRACE mg/dL (NEGATIVE); LEUKOCYTE ESTERASE,URINE MODERATE (NEGATIVE); NITRITE,URINE NEGATIVE (NEGATIVE); PROTEIN,URINE 30 mg/dL (NEGATIVE); URINE SPECIFIC GRAVITY 1.021
[2018-06-26 15:08] LABS: ANION GAP 7 (5-19); BLOOD UREA NITROGEN 26 mg/dL (7-20); CALCIUM 9.2 mg/dL (8.4-10.2); CARBON DIOXIDE 25 mmol/L (22-30); CHLORIDE 111 mmol/L (98-107); GLUCOSE 79 mg/dL (75-110); IRON(TIBC) 62.7 ug/dL (37-170); PHOSPHORUS 4.2 mg/dL (2.5-4.5); POTASSIUM 4.2 mmol/L (3.6-5.0); SODIUM 143.1 mmol/L (137-145)
[2018-06-26 16:15] LABS: FOLATE 4.31 ng/mL (>2.76)
== END ==
LOC: OD 14:01
PROVIDERS: ATTEND Family Medicine
DX: N18.9 Chronic kidney disease, unspecified (principal); D64.9 Anemia, unspecified
CPT/HCPCS: 36415; 80048; 81001; 82607; 82728; 82746; 83540; 83550; 84100; 85025

== ENCOUNTER → 2018-07-25 | Outpatient (CLI) | payer MEDICARE ==
--- NOTE | 2018-07-25 12:58 | RADIOLOGY REPORT (SQ) ---
EXAM DESCRIPTION: CHEST PA/LATERAL COMPLETED DATE/TIME: 07/25/2018 12:00 pm REASON FOR STUDY: OTHER NONSPECIFIC ABNORMAL FINDING OF LUNG FIELD COMPARISON: 03/05/2016 EXAM PARAMETERS: NUMBER OF VIEWS: two views TECHNIQUE: Digital Frontal and Lateral radiographic views of the chest acquired. RADIATION DOSE: NA LIMITATIONS: none FINDINGS: LUNGS AND PLEURA: No opacities, masses or pneumothorax. No pleural effusion. Stable chron ic interstitial changes. MEDIASTINUM AND HILAR STRUCTURES: No masses or contour abnormalities. HEART AND VASCULAR STRUCTURES: Normal heart size. Aortic atherosclerosis. BONES: No acute findings. HARDWARE: None in the chest. OTHER: No other significant finding. IMPRESSION: No evidence of acute cardiopulmonary process. TECHNICAL DOCUMENTATION: JOB ID: [id number] [employer]- All Rights Reserved Reading location - IP/workstation name: [email or web address]
== END ==
LOC: OD 11:47
PROVIDERS: ATTEND Family Medicine
DX: R91.8 Other nonspecific abnormal finding of lung field (principal)
CPT/HCPCS: 71046

== ENCOUNTER → 2018-12-21 | Outpatient (CLI) | payer MEDICARE ==
--- NOTE | 2018-12-21 12:32 | RADIOLOGY REPORT (SQ) ---
EXAM DESCRIPTION: BARIUM SWALLOW ESOPHAGUS COMPLETED DATE/TIME: 12/21/2018 9:12 am REASON FOR STUDY: R13.12 DYSPHAGIA, OROPHARYNGEAL PHASE R13.12 DYSPHAGIA, OROPHARYNGEAL PHASE COMPARISON: None. TECHNIQUE: Under fluoroscopic guidance, patient ingested effervescent granules followed by thick and thin barium. Fluoroscopic spot images and routine radiographic images acquired and stored on PACS. 12 MM BARIUM TABLET GIVEN: Yes. No significant delay in passage. LIMITATIONS: None. FLUOROSCOPY TIME: FLUORO TIME: 2.2 minutes of fluoroscopy was used. 11 images saved to PACS. FINDINGS: NEUROMUSCULAR COORDINATION OF SWALLOW: Normal. No aspiration. Mild cricopharyngeal hypert rophy. ESOPHAGEAL MOTILITY: Mild esophageal dysmotility. It is No esophageal spasm. ESOPHAGEAL MUCOSA: Normal mucosa without masses or ulceration. GASTRO-ESOPHAGEAL JUNCTION: No hiatal hernia or significant reflux. 12 mm barium tablet passed throu gh the esophagus and into the stomach without delay. NON-GI TRACT STRUCTURES: No significant finding. OTHER: Postsurgical changes seen of the stomach from previous Whipple procedure. Contrast is seen em ptying into the duodenum. IMPRESSION: MILD ESOPHAGEAL DYSMOTILITY OTHERWISE UNREMARKABLE BARIUM SWALLOW. COMMENT: Quality ID [id number]: Final reports for procedures using fluoroscopy that document radiation exp osure indices, or exposure time and number of fluorographic images (if radiation exposure indices are not available) TECHNICAL DOCUMENTATION: JOB ID: [id number] [employer]- All Rights Reserved Reading location - IP/workstation name: [email or web address]
== END ==
LOC: RAD 08:08
PROVIDERS: ATTEND Internal Medicine Gastroenterology
DX: K22.4 Dyskinesia of esophagus (principal); R13.12 Dysphagia, oropharyngeal phase
CPT/HCPCS: 74220

== ENCOUNTER → 2019-02-14 | Outpatient (CLI) | payer MEDICARE ==
[2019-02-14 10:30] LABS: ABSOLUTE EOSINOPHILS # (AUTO) 0.3 10^3/uL (0.0-0.6); ABSOLUTE LYMPHOCYTES (AUTO) 0.5 10^3/uL (0.5-4.7); ABSOLUTE MONOCYTES (AUTO) 0.5 10^3/uL (0.1-1.4); ABSOLUTE NEUT (AUTO) 2.3 10^3/uL (1.7-8.2); BASOPHILS % (AUTO) 0.9 % (0-2); EOSINOPHILS % (AUTO) 7.3 % (0-6); HEMATOCRIT 31.2 % (36.0-47.0); HEMOGLOBIN 10.5 g/dL (12.0-15.5); MEAN CORPUSCULAR HGB CONC 33.7 g/dL (32.0-36.0); MEAN CORPUSCULAR VOLUME 89 fl (80-97); MONOCYTES % (AUTO) 12.7 % (3-13); PLATELET COUNT 184 10^3/uL (150-450); SEGMENTED NEUTROPHILS % (AUTO) 64.1 % (42-78); TOTAL CELLS COUNTED % (AUTO) 100 %; WHITE BLOOD COUNT 3.7 10^3/uL (4.0-10.5)
[2019-02-14 10:44] LABS: ALBUMIN 4.1 g/dL (3.5-5.0); ALKALINE PHOSPHATASE 124 U/L (38-126); ANION GAP 10 (5-19); ASPARTATE AMINO TRANSFERASE 22 U/L (14-36); BILIRUBIN,DIRECT 0.2 mg/dL (0.0-0.4); BILIRUBIN,TOTAL 0.4 mg/dL (0.2-1.3); BLOOD UREA NITROGEN 25 mg/dL (7-20); CALCIUM 9.9 mg/dL (8.4-10.2); CARBON DIOXIDE 25 mmol/L (22-30); CHLORIDE 110 mmol/L (98-107); GLUCOSE 101 mg/dL (75-110); POTASSIUM 4.9 mmol/L (3.6-5.0); TOTAL PROTEIN 9.3 g/dL (6.3-8.2); TRIGLYCERIDES 290 mg/dL (<150)
[2019-02-14 10:54] LABS: DIRECT LDL 132 mg/dL (<100)
== END ==
LOC: OD 09:37
PROVIDERS: ATTEND Family Medicine
DX: E87.6 Hypokalemia (principal); C85.19 Unspecified B-cell lymphoma, extranodal and solid organ sites; D51.9 Vitamin B12 deficiency anemia, unspecified; Z13.1 Encounter for screening for diabetes mellitus; Z13.6 Encounter for screening for cardiovascular disorders; Z13.0 Encounter for screening for diseases of the blood and blood-forming organs and certain disorders involving the immune mechanism
CPT/HCPCS: 36415; 80053; 80061; 82607; 83615; 83735; 85025

== ENCOUNTER → 2019-04-23 | Outpatient (CLI) | payer MEDICARE ==
[2019-04-23 15:32] LABS: ABSOLUTE EOSINOPHILS # (AUTO) 0.3 10^3/uL (0.0-0.6); ABSOLUTE LYMPHOCYTES (AUTO) 0.7 10^3/uL (0.5-4.7); ABSOLUTE MONOCYTES (AUTO) 0.6 10^3/uL (0.1-1.4); ABSOLUTE NEUT (AUTO) 2.1 10^3/uL (1.7-8.2); HEMATOCRIT 30.2 % (36.0-47.0); HEMOGLOBIN 10.2 g/dL (12.0-15.5); LYMPHOCYTES % (AUTO) 19.2 % (13-45); MEAN CORPUSCULAR HEMOGLOBIN 30.1 pg (27.0-33.4); MEAN CORPUSCULAR HGB CONC 33.9 g/dL (32.0-36.0); MEAN CORPUSCULAR VOLUME 89 fl (80-97); MONOCYTES % (AUTO) 15.8 % (3-13); PLATELET COUNT 176 10^3/uL (150-450); RED CELL DISTRIBUTION WIDTH 15.7 % (11.5-14.0); TOTAL CELLS COUNTED % (AUTO) 100 %; WHITE BLOOD COUNT 3.8 10^3/uL (4.0-10.5)
[2019-04-23 15:52] LABS: ALKALINE PHOSPHATASE 133 U/L (38-126); ANION GAP 11 (5-19); ASPARTATE AMINO TRANSFERASE 26 U/L (14-36); BILIRUBIN,DIRECT 0.4 mg/dL (0.0-0.4); BILIRUBIN,TOTAL 0.4 mg/dL (0.2-1.3); BLOOD UREA NITROGEN 24 mg/dL (7-20); CALCIUM 9.6 mg/dL (8.4-10.2); CARBON DIOXIDE 24 mmol/L (22-30); CHLORIDE 107 mmol/L (98-107); GLUCOSE 99 mg/dL (75-110); POTASSIUM 4.7 mmol/L (3.6-5.0); TOTAL PROTEIN 9.5 g/dL (6.3-8.2)
[2019-04-23 16:12] LABS: ERYTHROCYTE SEDIMENTATION RATE 87 mm/hr (0-30)
== END ==
LOC: WC 14:41
PROVIDERS: ATTEND Nurse Practitioner Family
DX: L97.522 Non-pressure chronic ulcer of other part of left foot with fat layer exposed (principal)
CPT/HCPCS: 36415; 80053; 85025; 85652; 86141

== ENCOUNTER → 2019-05-15 | Outpatient (CLI) | payer MEDICARE ==
--- NOTE | 2019-05-15 15:02 | RADIOLOGY REPORT (SQ) ---
EXAM DESCRIPTION: TIBIA FIBULA LEFT COMPLETED DATE/TIME: 05/15/2019 12:46 pm REASON FOR STUDY: L97.222 NON-PRESSURE CHRONIC ULCER OF LEFT CALF W FAT LAYER EXPOSED, I87. L97.522 NON-PRS CHRONIC ULCER OTH PRT LEFT FOOT W FAT LAYER L97.222 NON-PRESSURE CHRONIC ULCER OF LEFT AURE F W FAT LAYER I87.312 CHRONIC VENOUS HYPERTENSION W ULCER OF L LOW EXTREM COMPARISON: None. NUMBER OF VIEWS: Two views. TECHNIQUE: Two radiographic images acquired of the left tibia and fibula to include the knee and ank le in at least one projection. LIMITATIONS: None. FINDINGS: MINERALIZATION: Normal. BONES: No acute fracture or dislocation. No worrisome bone lesions. SOFT TISSUES: No obvious swelling or foreign body. OTHER: No other significant finding. IMPRESSION: NEGATIVE STUDY OF THE LEFT TIBIA AND FIBULA. NO RADIOGRAPHIC EVIDENCE OF ACUTE INJURY. TECHNICAL DOCUMENTATION: JOB ID: [id number] [employer]- All Rights Reserved Reading location - IP/workstation name: [email or web address]
--- NOTE | 2019-05-15 16:34 | XCELERA REPORT ---
[address] [address] Lower Extremity Arterial Evaluation Name: CORA KWON Age: 63 yrs Gender: Female : 1955 Patient Status: Outpatient Patient Location: Study Date: 05/15/2019 01:26 PM Procedure: A color flow and duplex scan of the lower extremity arteries was performed bilaterally with velocity and waveform anaylsis. Ankle brachial indicies performed. Reason For Study: CHRONIC ULCER Ordering Physician: LAINE GONZALEZ Performed By: Margo Augustine Measurements and Calculations Right Left ANALYTIC MANAGER PSV 107.5 113.1 cm/sec Prox PFA PSV -66.8 -74.6 cm/sec Prox Pop A PSV 69.5 97.0 cm/sec Dist Pop A PSV -63.6 -82.1 cm/sec Prox JASMIN PSV 54.4 73.9 cm/sec Dist JASMIN PSV 52.8 75.8 cm/sec Prox BOARD ATTENDANT PSV 92.3 74.2 cm/sec Dist BOARD ATTENDANT PSV 122.6 76.6 cm/sec Mid Brittney A PSV -50.6 23.2 cm/sec Jerson Pedis PSV -30.8 -67.4 cm/sec Right Side Arterial Evaluation Normal velocity and triphasic waveforms noted from the Common Femoral artery to the infrageniculate vessels . Ankle Brachial index 0.95. Left Side Arterial Evaluation Normal velocity and triphasic waveforms noted from the Common Femoral artery to the infrageniculate vessels . Ankle Brachial index 1.05. Interpretation Summary No hemodynamically significant lesions in the bilateral lower extremities, on duplex imaging, at rest. AMERICA's are normal, indicating no significant arterial obstructive disease. : LAINE GONZALEZ > Nehemias Vazquez
== END ==
LOC: SP 12:26
PROVIDERS: ATTEND Nurse Practitioner Family
DX: I87.312 Chronic venous hypertension (idiopathic) with ulcer of left lower extremity (principal); L97.522 Non-pressure chronic ulcer of other part of left foot with fat layer exposed; L97.222 Non-pressure chronic ulcer of left calf with fat layer exposed
CPT/HCPCS: 93922; 93925

== ENCOUNTER → 2019-06-25 | Outpatient (CLI) | payer MEDICARE ==
[2019-06-25 14:27] LABS: ABSOLUTE EOSINOPHILS # (AUTO) 0.2 10^3/uL (0.0-0.6); ABSOLUTE LYMPHOCYTES (AUTO) 0.7 10^3/uL (0.5-4.7); ABSOLUTE MONOCYTES (AUTO) 0.6 10^3/uL (0.1-1.4); ABSOLUTE NEUT (AUTO) 1.9 10^3/uL (1.7-8.2); BASOPHILS % (AUTO) 0.9 % (0-2); EOSINOPHILS % (AUTO) 6.7 % (0-6); HEMATOCRIT 31.3 % (36.0-47.0); HEMOGLOBIN 10.6 g/dL (12.0-15.5); LYMPHOCYTES % (AUTO) 19.2 % (13-45); MEAN CORPUSCULAR HEMOGLOBIN 29.8 pg (27.0-33.4); MEAN CORPUSCULAR HGB CONC 33.8 g/dL (32.0-36.0); MEAN CORPUSCULAR VOLUME 88 fl (80-97); MONOCYTES % (AUTO) 17.3 % (3-13); PLATELET COUNT 189 10^3/uL (150-450); RED BLOOD COUNT 3.55 10^6/uL (3.72-5.28); RED CELL DISTRIBUTION WIDTH 16.2 % (11.5-14.0); SEGMENTED NEUTROPHILS % (AUTO) 55.9 % (42-78); TOTAL CELLS COUNTED % (AUTO) 100 %; WHITE BLOOD COUNT 3.4 10^3/uL (4.0-10.5)
[2019-06-25 15:04] LABS: ALKALINE PHOSPHATASE 123 U/L (38-126); ANION GAP 11 (5-19); ASPARTATE AMINO TRANSFERASE 23 U/L (14-36); BILIRUBIN,DIRECT 0.3 mg/dL (0.0-0.4); BILIRUBIN,TOTAL 0.3 mg/dL (0.2-1.3); BLOOD UREA NITROGEN 20 mg/dL (7-20); CALCIUM 9.1 mg/dL (8.4-10.2); CARBON DIOXIDE 22 mmol/L (22-30); CHLORIDE 108 mmol/L (98-107); GLUCOSE 88 mg/dL (75-110); TOTAL PROTEIN 9.6 g/dL (6.3-8.2)
[2019-06-25 15:06] LABS: C-REACTIVE PROTEIN < 5.0 mg/L (<10.0)
[2019-06-25 15:07] LABS: ERYTHROCYTE SEDIMENTATION RATE 101 mm/hr (0-30)
== END ==
LOC: WC 13:58
PROVIDERS: ATTEND Nurse Practitioner Family
DX: L97.222 Non-pressure chronic ulcer of left calf with fat layer exposed (principal)
CPT/HCPCS: 36415; 80053; 85025; 85652; 86140

== ENCOUNTER → 2019-07-30 | Outpatient (CLI) | payer MEDICARE ==
[2019-07-30 12:17] LABS: ABSOLUTE EOSINOPHILS # (AUTO) 0.2 10^3/uL (0.0-0.6); ABSOLUTE LYMPHOCYTES (AUTO) 0.6 10^3/uL (0.5-4.7); ABSOLUTE MONOCYTES (AUTO) 0.5 10^3/uL (0.1-1.4); BASOPHILS % (AUTO) 0.9 % (0-2); EOSINOPHILS % (AUTO) 6.9 % (0-6); HEMATOCRIT 33.6 % (36.0-47.0); HEMOGLOBIN 11.4 g/dL (12.0-15.5); LYMPHOCYTES % (AUTO) 17.4 % (13-45); MEAN CORPUSCULAR VOLUME 88 fl (80-97); MONOCYTES % (AUTO) 14.3 % (3-13); PLATELET COUNT 188 10^3/uL (150-450); RED BLOOD COUNT 3.81 10^6/uL (3.72-5.28); RED CELL DISTRIBUTION WIDTH 15.6 % (11.5-14.0); SEGMENTED NEUTROPHILS % (AUTO) 60.5 % (42-78); TOTAL CELLS COUNTED % (AUTO) 100 %; WHITE BLOOD COUNT 3.3 10^3/uL (4.0-10.5)
[2019-07-30 12:42] LABS: ANION GAP 7 (5-19); BLOOD UREA NITROGEN 17 mg/dL (7-20); CALCIUM 9.4 mg/dL (8.4-10.2); CARBON DIOXIDE 24 mmol/L (22-30); CHLORIDE 108 mmol/L (98-107); GLUCOSE 100 mg/dL (75-110); POTASSIUM 4.8 mmol/L (3.6-5.0)
== END ==
LOC: OD 11:26
PROVIDERS: ATTEND Family Medicine
DX: D64.9 Anemia, unspecified (principal); N18.9 Chronic kidney disease, unspecified
CPT/HCPCS: 36415; 80048; 85025

== ENCOUNTER → 2019-11-06 | Outpatient (CLI) | payer MEDICARE, OTHER | LOC: OD 09:19 | PROVIDERS: ATTEND Family Medicine | DX: M54.5 Low back pain (principal); M45.9 Ankylosing spondylitis of unspecified sites in spine | CPT/HCPCS: 36415; 86812 ==

== ENCOUNTER 2020-01-08 12:03 | Emergency (ER) | payer MEDICARE, OTHER ==
--- NOTE | 2020-01-08 12:25 | ER Document Report ---
ED Medical Screen (RME) - General Chief Complaint: Abdominal Pain Stated Complaint: ABDOMINAL PAIN Time Seen by Provider: 01/08/20 12:18 Primary Care Provider: SRAVAN MCCABE MD [Primary Care Provider] - Follow up as needed Mode of Arrival: Ambulatory Information source: Patient Notes: HPI; 64-year-old female past medical history significant for chronic DVTs as well as stents in her left leg presents to the emergency room stating she was sent over by her primary care physician for admission for a blood clot in her left lower abdomen. Patient states she is been seeing a surgeon the moment and put an ultrasound on Monday and told her she had a clot in her abdomen and to follow-up with her primary care physician. Patient states she went to see her primary care physician today attempt was made to make her a direct admit but was told there were no beds and was sent to the ER. Is complaining of some pain to the left lower quadrant. Was restarted on Xarelto on Monday. Denies any fevers. No nausea, no vomiting, no urinary symptoms. PE: Alert and oriented x3. Mild distress noted. Lungs: Clear to auscultation without rales, rhonchi, wheezes. Heart: Regular rate rhythm without murmurs, rubs, gallops. I have greeted and performed a rapid initial assessment of this patient. A comprehensive ED assessment and evaluation of the patient, analysis of test results and completion of the medical decision making process will be conducted by additional ED providers. I have specifically instructed the patient or family members with the patient to immediately return to any nursing staff should anything change in the patient's condition or with their chief complaint. TRAVEL OUTSIDE OF THE [place] IN LAST 30 DAYS: No - Related Data Allergies/Adverse Reactions: cephalexin monohydrate [From Keflex] Allergy (Mild, Verified 05/02/18 16:21) ciprofloxacin HCl [From Cipro] Allergy (Mild, Verified 05/02/18 16:21) hydrocodone bitartrate [From Vicodin] Allergy (Mild, Verified 05/02/18 16:21) Past Medical History - Past Medical History Cardiac Medical History: Reports: Hx DVT, Hx Pulmonary Embolism Pulmonary Medical History: Reports: Hx Pneumonia Denies: Hx Tuberculosis Renal/ Medical History: Reports: Hx Renal Insufficiency. Denies: Hx Peritoneal Dialysis Psychiatric Medical History: Reports: Hx Depression Past Surgical History: Reports: Hx Abdominal Surgery - hernia repair, Hx Section, Hx Cholecystectomy, Hx Herniorrhaphy, Hx Hysterectomy, Hx Orthopedic Surgery - left ankle, Hx Pancreatic Surgery - whipple, Hx Whipple. Denies: Hx Pacemaker - Immunizations Hx Diphtheria, Pertussis, Tetanus Vaccination: Yes Physical Exam - Vital signs Vitals: Temp Pulse Resp BP Pulse Ox 97.7 F 68 16 127/58 H 98 01/08/20 12:01/08/20 12:01/08/20 12:01/08/20 12:01/08/20 12:09 Course - Vital Signs Vital signs: Temp Pulse Resp BP Pulse Ox 97.7 F 68 16 127/58 H 98 01/08/20 12:01/08/20 12:01/08/20 12:01/08/20 12:01/08/20 12:09 Doctor's Discharge - Discharge Referrals: SRAVAN MCCABE MD [Primary Care Provider] - Follow up as needed
[2020-01-08 12:51] LABS: ABSOLUTE BASOPHILS # (AUTO) 0.1 10^3/uL (0.0-0.2); ABSOLUTE EOSINOPHILS # (AUTO) 0.3 10^3/uL (0.0-0.6); ABSOLUTE LYMPHOCYTES (AUTO) 0.8 10^3/uL (0.5-4.7); ABSOLUTE MONOCYTES (AUTO) 0.5 10^3/uL (0.1-1.4); BASOPHILS % (AUTO) 1.5 % (0-2); EOSINOPHILS % (AUTO) 8.7 % (0-6); HEMATOCRIT 32.4 % (36.0-47.0); HEMOGLOBIN 11.1 g/dL (12.0-15.5); LYMPHOCYTES % (AUTO) 20.4 % (13-45); MEAN CORPUSCULAR HEMOGLOBIN 30.5 pg (27.0-33.4); MEAN CORPUSCULAR HGB CONC 34.3 g/dL (32.0-36.0); MEAN CORPUSCULAR VOLUME 89 fl (80-97); PLATELET COUNT 186 10^3/uL (150-450); RED BLOOD COUNT 3.63 10^6/uL (3.72-5.28); RED CELL DISTRIBUTION WIDTH 15.1 % (11.5-14.0); SEGMENTED NEUTROPHILS % (AUTO) 55.4 % (42-78); TOTAL CELLS COUNTED % (AUTO) 100 %; WHITE BLOOD COUNT 3.7 10^3/uL (4.0-10.5)
[2020-01-08 12:52] LABS: APPEARANCE,URINE CLEAR; BILIRUBIN,URINE NEGATIVE (NEGATIVE); COLOR,URINE STRAW; GLUCOSE, URINE NEGATIVE (NEGATIVE); KETONES,URINE NEGATIVE (NEGATIVE); LEUKOCYTE ESTERASE,URINE NEGATIVE (NEGATIVE); NITRITE,URINE NEGATIVE (NEGATIVE); PROTEIN,URINE NEGATIVE (NEGATIVE); URINE SPECIFIC GRAVITY 1.003; UROBILINOGEN,URINE NEGATIVE mg/dL (<2.0)
[2020-01-08 12:57] LABS: INTERNATIONAL RATION (INR) 1.11; PROTHROMBIN TIME 14.5 SEC (11.4-15.4)
--- NOTE | 2020-01-08 14:31 | ER Document Report ---
ED General - General Chief Complaint: Abdominal Pain Stated Complaint: ABDOMINAL PAIN Time Seen by Provider: 01/08/20 12:18 Primary Care Provider: SRAVAN MCCABE MD [Primary Care Provider] - Follow up as needed Mode of Arrival: Ambulatory Information source: Patient TRAVEL OUTSIDE OF THE [place] IN LAST 30 DAYS: No - HPI Notes: Patient was referred here by her primary care physician. Patient was recently diagnosed with a DVT in the left iliac vein. Patient states she has had DVTs her whole life since she was a teenager. She states she is also had PEs in the past. She states she has been on Xarelto and Coumadin as well as Lovenox at different times. She states she was prescribed Xarelto 2 days ago by the surgeon who diagnosed her iliac vein DVT. She states that she cannot afford the Xarelto so she is not able to take any type of anticoagulant. She went to her primary care doctor today who was unable to find an adequate solution and referred her to the emergency department. She states that her left leg does have a constant throbbing pain. It radiates up the left leg. Is worse with movement better with rest. It is moderate in intensity and constant. - Related Data Allergies/Adverse Reactions: cephalexin monohydrate [From Keflex] Allergy (Mild, Verified 05/02/18 16:21) ciprofloxacin HCl [From Cipro] Allergy (Mild, Verified 05/02/18 16:21) hydrocodone bitartrate [From Vicodin] Allergy (Mild, Verified 05/02/18 16:21) Past Medical History - General Information source: Patient - Social History Smoking Status: Never Smoker Frequency of alcohol use: None Drug Abuse: None Family History: Reviewed & Not Pertinent - Past Medical History Cardiac Medical History: Reports: Hx DVT, Hx Pulmonary Embolism Pulmonary Medical History: Reports: Hx Pneumonia Denies: Hx Tuberculosis Renal/ Medical History: Reports: Hx Renal Insufficiency. Denies: Hx Peritoneal Dialysis Psychiatric Medical History: Reports: Hx Depression Past Surgical History: Reports: Hx Abdominal Surgery - hernia repair, Hx Section, Hx Cholecystectomy, Hx Herniorrhaphy, Hx Hysterectomy, Hx Orthopedic Surgery - left ankle, Hx Pancreatic Surgery - whipple, Hx Whipple. Denies: Hx Pacemaker - Immunizations Hx Diphtheria, Pertussis, Tetanus Vaccination: Yes Hx Pneumococcal Vaccination: 02/04/12 Review of Systems - Review of Systems Constitutional: denies: Chills, Fever Cardiovascular: denies: Chest pain, Palpitations Respiratory: denies: Cough, Short of breath -: Yes All other systems reviewed and negative Physical Exam - Vital signs Vitals: Temp Pulse Resp BP Pulse Ox 97.7 F 68 16 127/58 H 98 01/08/20 12:09 01/08/20 12:09 01/08/20 12:09 01/08/20 12:01/08/20 12:09 Interpretation: Normal - General General appearance: Appears well, Alert - HEENT Head: Normocephalic, Atraumatic Eyes: Normal Pupils: PERRL - Respiratory Respiratory status: No respiratory distress Chest status: Nontender Breath sounds: Normal Chest palpation: Normal - Cardiovascular Rhythm: Regular Heart sounds: Normal auscultation Murmur: No - Abdominal Inspection: Normal Distension: No distension Bowel sounds: Normal Tenderness: Nontender Organomegaly: No organomegaly - Back Back: Normal, Nontender - Extremities General upper extremity: Normal inspection, Nontender, Normal color, Normal ROM, Normal temperature General lower extremity: Other - Left lower extremity shows swelling compared to the right lower extremity with some mild tenderness and firmness of the thigh as compared to the right. - Neurological Neuro grossly intact: Yes Cognition: Normal Orientation: AAOx4 Naylor Coma Scale Eye Opening: Spontaneous Tha Coma Scale Verbal: Oriented Naylor Coma Scale Motor: Obeys Commands Tha Coma Scale Total: 15 Speech: Normal Motor strength normal: LUE, RUE, LLE, RLE Sensory: Normal - Psychological Associated symptoms: Normal affect, Normal mood - Skin Skin Temperature: Warm Skin Moisture: Dry Skin Color: Normal Course - Re-evaluation Re-evalutation: 01/08/20 14:30 I am currently working with my social work job titles, Shane. We are attempting to obtain a solution, such as Eliquis, that will be affordable and therapeutic for the patient. - Vital Signs Vital signs: Temp Pulse Resp BP Pulse Ox 97.7 F 63 16 131/65 H 100 01/08/20 12:09 01/08/20 15:51 01/08/20 12:09 01/08/20 15:51 01/08/20 15:51 - Laboratory Result Diagrams: 01/08/20 12:26 01/08/20 12:26 Laboratory results interpreted by me: 01/08/20 01/08/20 01/08/20 12:26 12:26 12:26 WBC 3.7 L RBC 3.63 L Hgb 11.1 L Hct 32.4 L RDW 15.1 H [place] % (Auto) 14.0 H Eos % (Auto) 8.7 H Est GFR ( Amer) 57 L Est GFR (MDRD) Non-Af 47 L Total Protein 9.6 H Urine Blood SMALL H Discharge - Discharge Clinical Impression: DVT (deep venous thrombosis) Qualifiers: DVT location: lower extremity Affected thrombotic vein of extremity: iliac Chronicity: acute Laterality: left Qualified Code(s): I82.422 - Acute embolism and thrombosis of left iliac vein Condition: Stable Disposition: OTHER Referrals: SRAVAN MCCABE MD [Primary Care Provider] - Follow up as needed
[2020-01-08] MEDS ORDERED: APIXABAN 5 MG TABLET PO ONE (14:32)
[2020-01-08 14:41] LABS: ALBUMIN 4.1 g/dL (3.5-5.0); ALKALINE PHOSPHATASE 125 U/L (38-126); ANION GAP 11 (5-19); ASPARTATE AMINO TRANSFERASE 31 U/L (14-36); BILIRUBIN,DIRECT 0.4 mg/dL (0.0-0.4); BILIRUBIN,TOTAL 0.4 mg/dL (0.2-1.3); BLOOD UREA NITROGEN 16 mg/dL (7-20); CALCIUM 9.5 mg/dL (8.4-10.2); CARBON DIOXIDE 24 mmol/L (22-30); CHLORIDE 106 mmol/L (98-107); GLUCOSE 104 mg/dL (75-110); POTASSIUM 3.9 mmol/L (3.6-5.0); TOTAL PROTEIN 9.6 g/dL (6.3-8.2)
[2020-01-08 15:53] VITALS: BP 131/65
== END 2020-01-08 16:18 | disposition home or self-care (01) ==
LOC: ER 12:03
DX: I82.422 Acute embolism and thrombosis of left iliac vein (principal); R10.9 Unspecified abdominal pain; Z86.718 Personal history of other venous thrombosis and embolism; Z88.3 Allergy status to other anti-infective agents
CPT/HCPCS: 99283; 36415; 85025; 85610; 80053; 81001; A9270

== ENCOUNTER 2020-01-25 15:54 | Emergency (ER) | payer MEDICARE, OTHER ==
[2020-01-25] MEDS ORDERED: ACETAMINOPHEN 325 MG TABLET PO ONE (16:41)
--- NOTE | 2020-01-25 16:41 | ER Document Report ---
ED Medical Screen (RME) - General Chief Complaint: Fall Stated Complaint: LEFT KNEE PAIN Time Seen by Provider: 01/25/20 16:31 Primary Care Provider: SRAVAN MCCABE MD [Primary Care Provider] - Follow up as needed Mode of Arrival: Medic Information source: Patient Notes: 64-year-old female presented to ED for complaint of fall. She states she is not sure why she fell but she was outside and landed [employer]. She states after the fall she was very dizzy and could not get up and had to call EMS to come and get it. She does have a history of multiple blood clots in her legs including blood clot that ended up that it killed the bone in her left ankle and had to have ankle surgery. She is also got a history of depression anxiety heart palpitations she has had large B-cell lymphoma. She has had a pulmonary emboli due to the Whipple procedure that she had when they thought she had pancreatic cancer and ended up being lymphoma. She has had a ventral hernia due to the Whipple procedure. She states in November they tried putting stents in the left leg and they did not work out. She states she is also recently had a surgery on the left knee. We will get blood urine x-ray to the left knee and right hand and give her some Tylenol at this time. I have greeted and performed a rapid initial assessment of this patient. A comprehensive ED assessment and evaluation of the patient, analysis of test results and completion of medical decision making process will be conducted by an additional ED providers. TRAVEL OUTSIDE OF THE [place] IN LAST 30 DAYS: No - HPI Onset: Just prior to arrival Onset/Duration: Sudden Quality of pain: Sharp, Throbbing Severity: Severe Pain Level: 5 - Related Data Allergies/Adverse Reactions: cephalexin monohydrate [From Keflex] Allergy (Mild, Verified 01/25/20 16:40) ciprofloxacin HCl [From Cipro] Allergy (Mild, Verified 01/25/20 16:40) hydrocodone bitartrate [From Vicodin] Allergy (Mild, Verified 01/25/20 16:40) Past Medical History - Past Medical History Cardiac Medical History: Reports: Hx DVT, Hx Pulmonary Embolism Pulmonary Medical History: Reports: Hx Pneumonia Denies: Hx Tuberculosis Renal/ Medical History: Reports: Hx Renal Insufficiency. Denies: Hx Peritoneal Dialysis Psychiatric Medical History: Reports: Hx Depression Past Surgical History: Reports: Hx Abdominal Surgery - hernia repair, Hx Section, Hx Cholecystectomy, Hx Herniorrhaphy, Hx Hysterectomy, Hx Orthopedic Surgery - left ankle, Hx Pancreatic Surgery - whipple, Hx Whipple. Denies: Hx Pacemaker - Immunizations Hx Diphtheria, Pertussis, Tetanus Vaccination: Yes Physical Exam - Vital signs Vitals: Temp Pulse Resp BP Pulse Ox 98.0 F 56 L 18 122/60 96 01/25/20 16:05 01/25/20 16:05 01/25/20 16:05 01/25/20 16:05 01/25/20 16:05 Course - Vital Signs Vital signs: Temp Pulse Resp BP Pulse Ox 98.0 F 56 L 18 122/60 96 01/25/20 16:05 01/25/20 16:05 01/25/20 16:05 01/25/20 16:05 01/25/20 16:05 Doctor's Discharge - Discharge Referrals: SRAVAN MCCABE MD [Primary Care Provider] - Follow up as needed
[2020-01-25 17:18] LABS: ABSOLUTE EOSINOPHILS # (AUTO) 0.2 10^3/uL (0.0-0.6); ABSOLUTE LYMPHOCYTES (AUTO) 0.7 10^3/uL (0.5-4.7); ABSOLUTE MONOCYTES (AUTO) 0.4 10^3/uL (0.1-1.4); ABSOLUTE NEUT (AUTO) 2.3 10^3/uL (1.7-8.2); BASOPHILS % (AUTO) 0.7 % (0-2); EOSINOPHILS % (AUTO) 6.2 % (0-6); HEMATOCRIT 32.4 % (36.0-47.0); HEMOGLOBIN 10.6 g/dL (12.0-15.5); LYMPHOCYTES % (AUTO) 18.2 % (13-45); MEAN CORPUSCULAR HEMOGLOBIN 29.4 pg (27.0-33.4); MEAN CORPUSCULAR HGB CONC 32.9 g/dL (32.0-36.0); MEAN CORPUSCULAR VOLUME 90 fl (80-97); MONOCYTES % (AUTO) 11.4 % (3-13); PLATELET COUNT 192 10^3/uL (150-450); RED BLOOD COUNT 3.62 10^6/uL (3.72-5.28); RED CELL DISTRIBUTION WIDTH 15.2 % (11.5-14.0); SEGMENTED NEUTROPHILS % (AUTO) 63.5 % (42-78); TOTAL CELLS COUNTED % (AUTO) 100 %; WHITE BLOOD COUNT 3.6 10^3/uL (4.0-10.5)
[2020-01-25 17:24] LABS: PROTHROMBIN TIME 13.4 SEC (11.4-15.4)
[2020-01-25 17:25] LABS: PARTIAL THROMBOPLASTIN TIME 28.2 SEC (23.5-35.8)
[2020-01-25 17:34] LABS: ALBUMIN 3.8 g/dL (3.5-5.0); ALKALINE PHOSPHATASE 110 U/L (38-126); ANION GAP 7 (5-19); ASPARTATE AMINO TRANSFERASE 32 U/L (14-36); BILIRUBIN,DIRECT 0.3 mg/dL (0.0-0.4); BILIRUBIN,TOTAL 0.3 mg/dL (0.2-1.3); BLOOD UREA NITROGEN 14 mg/dL (7-20); CALCIUM 9.3 mg/dL (8.4-10.2); CARBON DIOXIDE 27 mmol/L (22-30); CHLORIDE 108 mmol/L (98-107); GLUCOSE 126 mg/dL (75-110); POTASSIUM 3.9 mmol/L (3.6-5.0); TOTAL PROTEIN 9.1 g/dL (6.3-8.2)
--- NOTE | 2020-01-25 17:47 | RADIOLOGY REPORT (SQ) ---
EXAM DESCRIPTION: KNEE LEFT 2 VIEWS IMAGES COMPLETED DATE/TIME: 01/25/2020 5:11 pm REASON FOR STUDY: Fall pain injury COMPARISON: None. NUMBER OF VIEWS: Two views. TECHNIQUE: AP and lateral radiographic images acquired of the left knee. LIMITATIONS: None. FINDINGS: MINERALIZATION: Normal. BONES: Avulsion injury involving the inferior pole the patella. Multiple fragments are demonstrated. JOINT: No effusion. SOFT TISSUES: No soft tissue swelling. No radio-opaque foreign body. OTHER: No other significant finding. IMPRESSION: Comminuted fracture of the patella consistent with avulsive type mechanism of injury. TECHNICAL DOCUMENTATION: JOB ID: [id number] 2010 [employer]- All Rights Reserved Reading location - IP/workstation name: [email or web address]
--- NOTE | 2020-01-25 17:48 | RADIOLOGY REPORT (SQ) ---
EXAM DESCRIPTION: HAND RIGHT 3 VIEWS IMAGES COMPLETED DATE/TIME: 01/25/2020 5:11 pm REASON FOR STUDY: Fall pain injury COMPARISON: None. EXAM PARAMETERS: NUMBER OF VIEWS: Three views. TECHNIQUE: AP, lateral and oblique radiographic images acquired of the right hand. LIMITATIONS: None. FINDINGS: MINERALIZATION: Osteopenia. BONES: No acute fracture or dislocation. No worrisome bone lesions. Background of degenerative johnson ges involving predominantly the interphalangeal joint. JOINTS: No effusions. SOFT TISSUES: No soft tissue swelling. No foreign body. OTHER: No other significant finding. IMPRESSION: No evidence of acute osseous injury. Background of osteopenia and diffuse degenerative changes. TECHNICAL DOCUMENTATION: JOB ID: [id number] 2010 [employer]- All Rights Reserved Reading location - IP/workstation name: [email or web address]
--- NOTE | 2020-01-25 21:08 | ER Document Report ---
ED General - General Chief Complaint: Fall Stated Complaint: LEFT KNEE PAIN Time Seen by Provider: 01/25/20 16:31 Primary Care Provider: ARUNA BELL MD [ACTIVE STAFF] - 01/27/20 () Mode of Arrival: Medic TRAVEL OUTSIDE OF THE [place] IN LAST 30 DAYS: No - HPI Notes: Patient is a 64-year-old female with a history of DVTs who presents status post mechanical fall. Patient states she was walking outside of [facility] when she lost her balance and landed on her left knee and right hand. She denies any dizziness, weakness, lightheadedness, and any other preceding symptoms. She denies hitting her head or any loss of consciousness. She denies chest pain, shortness of breath, nausea, and vomiting. She has a history of chronic DVTs and had stents placed in her left leg in November by Dr. Malloy in [place], [place]. She was found to have an abdominal blood clot last month and she continues to take Eliquis as prescribed. Patient states she was diagnosed with large B-cell lymphoma back in 2011 and has been in remission since. She has a history of a Whipple. She denies alcohol and tobacco use. - Related Data Allergies/Adverse Reactions: cephalexin monohydrate [From Keflex] Allergy (Mild, Verified 01/25/20 16:40) ciprofloxacin HCl [From Cipro] Allergy (Mild, Verified 01/25/20 16:40) hydrocodone bitartrate [From Vicodin] Allergy (Mild, Verified 01/25/20 16:40) Home Medications: Eliquis. metoprolol. zoloft Past Medical History - General Information source: Patient - Social History Smoking Status: Never Smoker Chew tobacco use (# tins/day): No Frequency of alcohol use: None Drug Abuse: None Family History: Reviewed & Not Pertinent - Past Medical History Cardiac Medical History: Reports: Hx DVT, Hx Pulmonary Embolism Pulmonary Medical History: Reports: Hx Pneumonia Denies: Hx Tuberculosis Renal/ Medical History: Reports: Hx Renal Insufficiency. Denies: Hx Peritoneal Dialysis Psychiatric Medical History: Reports: Hx Depression Past Surgical History: Reports: Hx Abdominal Surgery - hernia repair, Hx Ce sarean Section, Hx Cholecystectomy, Hx Herniorrhaphy, Hx Hysterectomy, Hx Orthopedic Surgery - left ankle, Hx Pancreatic Surgery - whipple, Hx Whipple. Denies: Hx Pacemaker - Immunizations Hx Diphtheria, Pertussis, Tetanus Vaccination: Yes Hx Pneumococcal Vaccination: 02/04/12 Review of Systems - Review of Systems Constitutional: No symptoms reported EENT: No symptoms reported Cardiovascular: No symptoms reported Respiratory: No symptoms reported Gastrointestinal: No symptoms reported Genitourinary: No symptoms reported Female Genitourinary: No symptoms reported Musculoskeletal: See HPI Skin: No symptoms reported Hematologic/Lymphatic: No symptoms reported Neurological/Psychological: No symptoms reported Physical Exam - Vital signs Vitals: Temp Pulse Resp BP Pulse Ox 98.0 F 56 L 18 122/60 96 01/25/20 16:05 01/25/20 16:05 01/25/20 16:05 01/25/20 16:05 01/25/20 16:05 - Notes Notes: PHYSICAL EXAMINATION: VITALS: Vitals reviewed and within normal limits. GENERAL: Well-appearing, well-nourished and in no acute distress. HEAD: Atraumatic, normocephalic. EYES: Pupils equal, round, and reactive to light, extraocular movements intact, sclera anicteric, conjunctiva are normal. ENT: Nares patent. Moist mucous membranes. Oropharynx clear without exudates. NECK: Normal range of motion, supple without lymphadenopathy. LUNGS: Breath sounds clear to auscultation bilaterally and equal. No wheezes rales or rhonchi. HEART: Regular, rate, and rhythm without murmurs. ABDOMEN: Soft, nontender, normoactive bowel sounds. No guarding, no rebound. No masses appreciated. EXTREMITIES: Small abrasion to the palmar aspect of the right hand. Left knee range of motion limited secondary to pain. Tenderness to palpation over the entire knee. Sensation intact and palpable DP and PT pulses of the left lower extremity. Exam limited due to left leg pain in a compression stocking. Normal range of motion, no pitting or edema of all other extremities. No cyanosis. NEUROLOGICAL: No focal neurological deficits. Moves all extremities spontaneously and on command. PSYCH: Normal mood, normal affect. SKIN: Warm, Dry, normal turgor, no rashes or lesions noted. Course - Re-evaluation Re-evalutation: Patient is a 64-year-old male with history of DVTs on Eliquis who presents status post mechanical fall that happened earlier today. Patient lost her balance and landed on her left knee and right hand. Vital signs are within normal limits. On exam, range of motion of the left knee is limited secondary to pain, but left lower extremity is neurovascularly intact. Compression stocking on the left lower extremity status post vascular surgery done a month and half ago which limited the exam. CBC, CMP, and coag panel are all within normal limits and unremarkable. Right hand x-ray is negative with no signs of fracture. Left knee x-ray shows comminuted fracture of the patella consistent with avulsive type mechanism of injury. 01/25/20 21:01 Hospital quiller operator contacted to notify Dr. Bell, the Ortho on- call. 01/25/20 21:[address] Bell concerning the patient and he re commended a knee immobilizer with weight bearing as tolerated in extension. He will see her this coming week. I discussed the results with the patient as well as the plan for immobilization and prompt follow up with Dr. Bell. Patient understands and is in agreement. Knee immobilizer will be placed here. Patient will be given crutches. Patient will be sent home with prescription for Percocet. A dose of Percocet and Zofran given here in the ED as she will not be able to scrap picker her prescription until the morning. - Vital Signs Vital signs: Temp Pulse Resp BP Pulse Ox 98.1 F 50 L 18 127/58 H 100 01/25/20 22:33 01/25/20 22:33 01/25/20 22:33 01/25/20 22:33 01/25/20 22:33 - Laboratory Result Diagrams: 01/25/20 16:50 01/25/20 16:50 Laboratory results interpreted by me: 01/25/20 01/25/20 16:50 16:50 WBC 3.6 L RBC 3.62 L Hgb 10.6 L Hct 32.4 L RDW 15.2 H Eos % (Auto) 6.2 H Chloride 108 H Est GFR (MDRD) Non-Af 54 L Glucose 126 H Total Protein 9.1 H - Diagnostic Test Radiology reviewed: Image reviewed, Reports reviewed Radiology results interpreted by me: Hand X-Ray 01/25/20 16:38 IMPRESSION: No evidence of acute osseous injury. Background of osteopenia and diffuse degenerative changes. Knee X-Ray 01/25/20 16:38 IMPRESSION: Comminuted fracture of the patella consistent with avulsive type mechanism of injury. Discharge - Discharge Clinical Impression: Right hand pain Left knee pain Qualifiers: Chronicity: acute Qualified Code(s): M25.562 - Pain in left knee Fracture of left patella Qualifiers: Encounter type: initial encounter Fracture type: closed Fracture morphology: comminuted Fracture alignment: displaced Qualified Code(s): S82.042A - Displaced comminuted fracture of left patella, initial encounter for closed fracture Abrasion of right hand Qualifiers: Encounter type: initial encounter Qualified Code(s): S60.511A - Abrasion of right hand, initial encounter Condition: Stable Disposition: HOME, SELF-CARE Additional Instructions: Fractured Patella You have broken the kneecap (patella). Mild fractures can be treated with splinting. Serious fractures (those that split the kneecap so the thigh muscle and kneecap tendon aren't connected) usually need surgery. The entire knee will swell and bulge with fluid. There may be a lot of bruising. The knee will be splinted. Apply ice packs, and elevate the leg. You shouldn't walk on the leg at first. After a couple of days, you can walk in the splint if it doesn't hurt. You can fully weight bear on your left leg as long as your knee brace is on. Call the doctor at once if there is severe swelling, increasing pain, numb ness, or other alarming symptoms. Prescriptions: Oxycodone HCl/Acetaminophen [Percocet 5-325 mg Tablet] 1 - 2 tab PO TID PRN #15 tab PRN Reason: Referrals: ARUNA BELL MD [ACTIVE STAFF] - 01/27/20 ()
[2020-01-25] MEDS ORDERED: ONDANSETRON 4 MG TAB.RAPDIS PO ONE (21:52)
[2020-01-25] MEDS ORDERED: OXYCODONE-ACETAMINOPHEN 5-325 MG TABLET PO ONE (21:52)
[2020-01-25 22:36] VITALS: BP 127/58
== END 2020-01-25 22:36 | disposition home or self-care (01) ==
LOC: ER 15:54
DX: S82.042A Displaced comminuted fracture of left patella, initial encounter for closed fracture (principal); S60.511A Abrasion of right hand, initial encounter; W01.0XXA Fall on same level from slipping, tripping and stumbling without subsequent striking against object, initial encounter; M85.841 Other specified disorders of bone density and structure, right hand; F32.9 Major depressive disorder, single episode, unspecified; I74.9 Embolism and thrombosis of unspecified artery; I82.509 Chronic embolism and thrombosis of unspecified deep veins of unspecified lower extremity; Z79.01 Long term (current) use of anticoagulants; Z79.899 Other long term (current) drug therapy; Z95.820 Peripheral vascular angioplasty status with implants and grafts; Z85.72 Personal history of non-Hodgkin lymphomas; Z88.1 Allergy status to other antibiotic agents; Z88.6 Allergy status to analgesic agent; Z88.5 Allergy status to narcotic agent
CPT/HCPCS: 99284; 36415; 85025; 85610; 85730; 80053; 73130; 73560; A9270 ×3; S0119

== ENCOUNTER 2020-01-31 07:07 | Day surgery (SDC) | payer MEDICARE, OTHER ==
[~2020-01-31 07:07] MED LIST: CEFAZOLIN 2 GM/D5W RTU 2 GM/50 ML RTUPB IV ONE; DEXAMETHASONE SOD PHOSPHATE INJ 4 MG/1 ML VIAL ONE; EPHEDRINE SULFATE INJ 50 MG/1 ML AMPULE ONE; FENTANYL CITRATE INJ/PF 100 MCG/2 ML AMPUL ONE; MIDAZOLAM 2 MG/2 ML INJ ONE; ONDANSETRON HCL INJ/PF 4 MG/2 ML SDV ONE; PROPOFOL INJ 200 MG/20 ML VIAL IV ONE
[2020-01-31 07:57] LABS: ABSOLUTE EOSINOPHILS # (AUTO) 0.2 10^3/uL (0.0-0.6); ABSOLUTE LYMPHOCYTES (AUTO) 0.6 10^3/uL (0.5-4.7); ABSOLUTE MONOCYTES (AUTO) 0.5 10^3/uL (0.1-1.4); ABSOLUTE NEUT (AUTO) 2.4 10^3/uL (1.7-8.2); BASOPHILS % (AUTO) 1.1 % (0-2); HEMATOCRIT 29.2 % (36.0-47.0); HEMOGLOBIN 9.9 g/dL (12.0-15.5); LYMPHOCYTES % (AUTO) 16.4 % (13-45); MEAN CORPUSCULAR HEMOGLOBIN 30.2 pg (27.0-33.4); MEAN CORPUSCULAR HGB CONC 33.9 g/dL (32.0-36.0); MEAN CORPUSCULAR VOLUME 89 fl (80-97); MONOCYTES % (AUTO) 12.4 % (3-13); PLATELET COUNT 180 10^3/uL (150-450); RED BLOOD COUNT 3.28 10^6/uL (3.72-5.28); RED CELL DISTRIBUTION WIDTH 15.2 % (11.5-14.0); SEGMENTED NEUTROPHILS % (AUTO) 64.1 % (42-78); TOTAL CELLS COUNTED % (AUTO) 100 %; WHITE BLOOD COUNT 3.7 10^3/uL (4.0-10.5)
[2020-01-31 08:03] LABS: INTERNATIONAL RATION (INR) 1.17; PROTHROMBIN TIME 15.1 SEC (11.4-15.4)
[2020-01-31 08:04] LABS: PARTIAL THROMBOPLASTIN TIME 28.1 SEC (23.5-35.8)
[2020-01-31 08:13] LABS: ANION GAP 8 (5-19); BLOOD UREA NITROGEN 16 mg/dL (7-20); CALCIUM 9.2 mg/dL (8.4-10.2); CARBON DIOXIDE 23 mmol/L (22-30); CHLORIDE 110 mmol/L (98-107); GLUCOSE 122 mg/dL (75-110)
[2020-01-31] MEDS ORDERED: VANCOMYCIN HCL INJ 1000 MG VIAL ONE (09:30)
[2020-01-31] MEDS ORDERED: BUPIVACAINE HCL 0.25% /EPINEPHRINE INJ/PF 30 ML SDV ONE (09:41)
[2020-01-31] MEDS ORDERED: PROMETHAZINE HCL INJ 25 MG/1 ML VIAL IV PRN ×2 (10:01)
[2020-01-31] MEDS ORDERED: MEPERIDINE HCL/PF INJ 25 MG/1 ML DISP.SYRIN IV PRN (10:01)
[2020-01-31] MEDS ORDERED: DIPHENHYDRAMINE HCL 50 MG/ML VIAL IV PRN (10:01)
[2020-01-31] MEDS ORDERED: ONDANSETRON HCL INJ/PF 4 MG/2 ML SDV IV PRN (10:01)
[2020-01-31] MEDS ORDERED: FENTANYL CITRATE INJ/PF 100 MCG/2 ML AMPUL IV PRN ×3 (10:01)
--- NOTE | 2020-01-31 11:34 | Operative Report ---
Operative Report DATE OF SURGERY: 01/31/20 PREOPERATIVE DIAGNOSIS: 1. Left transverse distal pole patella fracture POSTOPERATIVE DIAGNOSIS: 1. Left transverse distal pole patella fracture. 2. Left patella tendon avulsion OPERATION: 1. Repair left patella tendon avulsion. 2. ORIF left transverse distal pole patella fracture SURGEON: ARUNA ROWE ANESTHESIA: GA COMPLICATIONS: None ESTIMATED BLOOD LOSS: Minimal PROCEDURE: Indications for procedure: The patient is a 64-year-old woman who sustained a fall resulting in a comminuted distal pole patella fracture of the left knee. The patient demonstrated loss of the extensor mechanism. Description of procedure: Following the induction of a general anesthetic and administration of 1 g of vancomycin, the patient was positioned supine on the operating room table. All bony prominences were padded. A tourniquet was placed proximally on the left thigh but not inflated. Left lower extremity sterilely prepped with ChloraPrep and draped in standard fashion. The leg was exsanguinated and the tourniquet inflated 200 mm above systolic pressure. Midline incision was made starting just proximal to the patella and ending at the tibial tubercle. A sharp incision was performed through skin. Skin flaps were raised. The fracture was identified. It was a small comminuted fracture at the distal pole with complete avulsion of the patella tendon. The fracture was too small to reliably prepared with standard techniques. It was therefore decided to perform a patella tendon repair and incorporates open reduction internal fixation of the patella in that repair. #2 FiberWire was run from proximal to distal on both sides of the patella using Krakw stitches and then back up again from distal to proximal so that there were 4 strands exiting the proximal portion of the patella tendon. 3 guidewires were driven into the patella from distal to proximal. These guidewires were overdrilled with a 4-0 cannulated drill bit. The patella fracture was then reduced and clamped into position. Image intensification was brought in which confirmed anatomic alignment of the patella fracture. With the clamps in place the sutures were tied on the superior aspect of the patella maintaining the reduction. Clamps were then removed. A cerclage around the patella was then performed with #5 FiberWire. Image intensification was brought in which confirmed anatomic alignment of the patella fracture. The knee was taken through a full range of motion which confirmed no gapping of the repair. The wound was then copiously irrigated. The subcutaneous tissue was closed with 2-0 Vicryl suture. The skin was reapproximated with 3-0 nylon suture. 30 cc of quarter percent Marcaine wi th epinephrine were injected into the knee joint for postoperative analgesia. A bulky sterile dressing and knee immobilizer were then applied. The patient tolerated procedure well without complication and was brought recovery in stable condition.
--- NOTE | 2020-01-31 11:44 | RADIOLOGY REPORT (SQ) ---
EXAM DESCRIPTION: KNEE LEFT 2 VIEWS; NO CHG FLUORO IMAGES COMPLETED DATE/TIME: 01/31/2020 11:34 am REASON FOR STUDY: LEFT KNEE ORIF ASSISTED USING FLUORO S82.032A DISPLACED TRANSVERSE FRACTURE OF LE FT PATELLA, INIT Z79.01 JAIL (CURRENT) USE OF ANTICOAGULANTS Z79.899 OTHER CONTACT LENS FITTER (CURRENT) DRUG THERAPY COMPARISON: None. FLUOROSCOPY TIME: Less than 1 minutes. Spot images saved to PACS. TECHNIQUE: Intra-operative images acquired during surgical procedure to evaluate progress. NUMBER OF IMAGES: 2 LIMITATIONS: None. FINDINGS: Fluoroscopy was provided for intraoperative procedure. Please refer to the operative repo rt for further discussion. IMPRESSION: IMAGE(S) OBTAINED DURING PROCEDURE. COMMENT: Quality ID 145: Final reports for procedures using fluoroscopy that document radiation exp osure indices, or exposure time and number of fluorographic images (if radiation exposure indices are not available) Please consult full operative report of the attending physician for description of the procedure. TECHNICAL DOCUMENTATION: JOB ID: [id number] 2010 [employer]- All Rights Reserved Reading location - IP/workstation name: [email or web address]
--- NOTE | 2020-01-31 11:44 | RADIOLOGY REPORT (SQ) ---
EXAM DESCRIPTION: KNEE LEFT 2 VIEWS; NO CHG FLUORO IMAGES COMPLETED DATE/TIME: 01/31/2020 11:34 am REASON FOR STUDY: LEFT KNEE ORIF ASSISTED USING FLUORO S82.032A DISPLACED TRANSVERSE FRACTURE OF LE FT PATELLA, INIT Z79.01 [facility] (CURRENT) USE OF ANTICOAGULANTS Z79.899 OTHER TAX EXAMINER (CURRENT) DRUG THERAPY COMPARISON: None. FLUOROSCOPY TIME: Less than 1 minutes. Spot images saved to PACS. TECHNIQUE: Intra-operative images acquired during surgical procedure to evaluate progress. NUMBER OF IMAGES: 2 LIMITATIONS: None. FINDINGS: Fluoroscopy was provided for intraoperative procedure. Please refer to the operative repo rt for further discussion. IMPRESSION: IMAGE(S) OBTAINED DURING PROCEDURE. COMMENT: Quality ID 145: Final reports for procedures using fluoroscopy that document radiation exp osure indices, or exposure time and number of fluorographic images (if radiation exposure indices are not available) Please consult full operative report of the attending physician for description of the procedure. TECHNICAL DOCUMENTATION: JOB ID: [id number] 2010 [employer]- All Rights Reserved Reading location - IP/workstation name: [email or web address]
[2020-01-31] MEDS: FENTANYL CITRATE INJ/PF 100 MCG/2 ML AMPUL ONE ×2 (11:54→12:02)
[2020-01-31] MEDS ORDERED: OXYCODONE-ACETAMINOPHEN 5-325 MG TABLET ONE (12:51)
[2020-01-31 14:58] VITALS: BP 141/80
--- NOTE | 2020-01-31 16:11 | EKG REPORT ---
SEVERITY:- BORDERLINE ECG - SINUS RHYTHM BORDERLINE T ABNORMALITIES, ANTERIOR LEADS : Confirmed by: Arian Lane MD 31-Jan-2020 16:10:39
== END 2020-01-31 13:50 | disposition home or self-care (01) ==
LOC: OROUT 07:07
PROVIDERS: ATTEND Orthopaedic Surgery
DX: S82.032A Displaced transverse fracture of left patella, initial encounter for closed fracture (principal); W19.XXXA Unspecified fall, initial encounter; Y92.512 Supermarket, store or market as the place of occurrence of the external cause; S76.192A Other specified injury of left quadriceps muscle, fascia and tendon, initial encounter; I10 Essential (primary) hypertension; I82.509 Chronic embolism and thrombosis of unspecified deep veins of unspecified lower extremity; Z79.01 Long term (current) use of anticoagulants; Z79.899 Other long term (current) drug therapy; Z85.72 Personal history of non-Hodgkin lymphomas
CPT/HCPCS: 36415; 85025; 85610; 85730; 80048; 73560; 93005; 93010; 01392; 27524; 27380; L1830; C1769; J2250; J3490; J1100; J3010; A9270; J2405; J2704; J3370; J0690

== ENCOUNTER → 2020-03-28 | Outpatient (CLI) | payer MEDICARE, OTHER ==
[2020-03-28 11:12] LABS: ABSOLUTE EOSINOPHILS # (AUTO) 0.2 10^3/uL (0.0-0.6); ABSOLUTE LYMPHOCYTES (AUTO) 0.6 10^3/uL (0.5-4.7); ABSOLUTE MONOCYTES (AUTO) 0.5 10^3/uL (0.1-1.4); ABSOLUTE NEUT (AUTO) 2.6 10^3/uL (1.7-8.2); BASOPHILS % (AUTO) 0.9 % (0-2); EOSINOPHILS % (AUTO) 5.5 % (0-6); HEMATOCRIT 31.9 % (36.0-47.0); HEMOGLOBIN 10.6 g/dL (12.0-15.5); LYMPHOCYTES % (AUTO) 14.8 % (13-45); MEAN CORPUSCULAR HEMOGLOBIN 29.7 pg (27.0-33.4); MEAN CORPUSCULAR HGB CONC 33.3 g/dL (32.0-36.0); MEAN CORPUSCULAR VOLUME 89 fl (80-97); MONOCYTES % (AUTO) 12.8 % (3-13); PLATELET COUNT 177 10^3/uL (150-450); RED BLOOD COUNT 3.58 10^6/uL (3.72-5.28); RED CELL DISTRIBUTION WIDTH 17.1 % (11.5-14.0); TOTAL CELLS COUNTED % (AUTO) 100 %
[2020-03-28 11:35] LABS: ALBUMIN 3.9 g/dL (3.5-5.0); ALKALINE PHOSPHATASE 118 U/L (38-126); ANION GAP 8 (5-19); ASPARTATE AMINO TRANSFERASE 29 U/L (14-36); BILIRUBIN,DIRECT 0.2 mg/dL (0.0-0.4); BILIRUBIN,TOTAL 0.5 mg/dL (0.2-1.3); BLOOD UREA NITROGEN 17 mg/dL (7-20); CALCIUM 9.5 mg/dL (8.4-10.2); CARBON DIOXIDE 25 mmol/L (22-30); CHLORIDE 109 mmol/L (98-107); CHOLESTEROL 248.33 mg/dL (0-200); GLUCOSE 104 mg/dL (75-110); POTASSIUM 4.9 mmol/L (3.6-5.0); TOTAL PROTEIN 9.3 g/dL (6.3-8.2); TRIGLYCERIDES 218 mg/dL (<150)
[2020-03-28 11:46] LABS: DIRECT LDL 154 mg/dL (<100)
[2020-03-28 12:26] LABS: VLDL CHOLESTEROL 43.6 mg/dL (10-31)
== END ==
LOC: OD 10:04
PROVIDERS: ATTEND Family Medicine
DX: D51.9 Vitamin B12 deficiency anemia, unspecified (principal); R77.9 Abnormality of plasma protein, unspecified; Z13.6 Encounter for screening for cardiovascular disorders; Z13.1 Encounter for screening for diabetes mellitus; Z13.0 Encounter for screening for diseases of the blood and blood-forming organs and certain disorders involving the immune mechanism; E87.6 Hypokalemia
CPT/HCPCS: 36415; 80053; 80061; 82607; 83735; 84165; 85025

== ENCOUNTER → 2020-04-28 | Outpatient (CLI) | payer MEDICARE, OTHER ==
--- NOTE | 2020-04-28 14:52 | WOMENS IMAGING REPORT ---
EXAM DESCRIPTION: BONE DENSITY HIP/SPINE IMAGES COMPLETED DATE/TIME: 04/28/2020 2:35 pm REASON FOR STUDY: Z78.0 ASYMPTOMATIC MENOPAUSAL STATE Z78.0 ASYMPTOMATIC MENOPAUSAL STATE Z12.31 E NCNTR SCREEN MAMMOGRAM FOR MALIGNANT NEOPLASM OF GALLO COMPARISON: None. TECHNIQUE: Dual-Energy X-ray Absorptiometry (DEXA) of the AP Spine and Hip. LIMITATIONS: None. FINDINGS: LUMBAR SPINE: The bone mineral density (BMD) measured from L1-L4 in the AP projection correlates with a T-score of 0.8, which is normal as defined by the World Health Organization. BMD Change vs Baseline: N/A HIP: The bone mineral density (BMD) measured in the left hip correlates with a T-score of -2.0 in the neck , which is osteopenia as defined by the World Health Organization. BMD Change vs Baseline: N/A 10 year Fracture Risk Assessment: Major Osteoporotic Fracture: Not available. Hip Fracture: Not available. IMPRESSION: 1. LUMBAR SPINE WHO CLASSIFICATION: NORMAL. 2. HIP WHO CLASSIFICATION: OSTEOPENIA. OVERALL ASSESSMENT: WHO CLASSIFICATION: OSTEOPENIA. COMMENT: The World Health Organization defines low BMD as follows: T-score: Normal: At or above -1.0 Osteopenia: Between -1.0 and -2.5 Osteoporosis: At or below -2.5 without fractures Established osteoporosis: At or below -2.5 with fractures In general, you may wish to consider: Diagnosis Treatment Follow-up DEXA Normal BMD Prevention 2-3 years Osteopenia Prevention/Therapy 1-2 years Osteoporosis Therapy Yearly TECHNICAL DOCUMENTATION: JOB ID: [id number] 2010 [employer]- All Rights Reserved Reading location - IP/workstation name: [email or web address]
--- NOTE | 2020-04-28 15:38 | WOMENS IMAGING REPORT ---
EXAM DESCRIPTION: 3D SCREENING MAMMO BILAT IMAGES COMPLETED DATE/TIME: 04/28/2020 2:35 pm REASON FOR STUDY: Z12.31 ENCOUNTER FOR SCREENING MAMMOGRAM FOR MALIGNANT NEOPLASM OF BREAST Z78.0 A SYMPTOMATIC MENOPAUSAL STATE Z12.31 ENCNTR SCREEN MAMMOGRAM FOR MALIGNANT NEOPLASM OF GALLO COMPARISON: Priors dating back to 2008 EXAM PARAMETERS: Views: Standard craniocaudal and mediolateral oblique views of each breast recorded using digital acquisition and breast tomosynthesis. Read with the assistance of CAD. .[facility] - R2 [employer] Version 1.3 LIMITATIONS: None. FINDINGS: No suspicious masses, suspicious calcifications or architectural distortion. No areas of c oncern. IMPRESSION: NEGATIVE MAMMOGRAM. BIRADS 1. BREAST DENSITY: c. The breasts are heterogeneously dense, which may obscure small masses. BIRAD: ASSESSMENT: 1 NEGATIVE RECOMMENDATION: ROUTINE SCREENING COMMENT: The patient has been notified of the results by letter per MQSA requirements. Additional no tification policies are in place for contacting patient with suspicious or incomplete findings. Quality ID #225: The [employer] recommends an annual screening mammogram for women aged 40 years or over. This facility utilizes a reminder system to ensure that all patients receive reminder letters, and/or direct phone calls for appointments. This includes reminders for routine scr eening mammograms, diagnostic mammograms, or other Breast Imaging Interventions when appropriate. Th is patient will be placed in the appropriate reminder system. TECHNICAL DOCUMENTATION: FINDING NUMBER: (1) ASSESSMENT: (1) JOB ID: [id number] 2010 [employer]- All Rights Reserved Reading location - IP/workstation name: [email or web address]
== END ==
LOC: WI 14:51
PROVIDERS: ATTEND Family Medicine
DX: Z12.31 Encounter for screening mammogram for malignant neoplasm of breast (principal); Z78.0 Asymptomatic menopausal state; M85.862 Other specified disorders of bone density and structure, left lower leg
CPT/HCPCS: 77063; 77067; 77080